=== PATIENT | female | born 1950 | race Caucasian/White ===

== ENCOUNTER 2022-07-12 09:08 | Outpatient (CLI) | payer MEDICARE, OTHER, SELFPAY ==
[2022-07-12 19:59] LABS: Basophils Percent Auto 0.6 % (0.2-1.2); Eosinophils Absolute Auto 0.1 K/mm3 (0-0.3); Eosinophils Percent Auto 2.3 % (0-4.4); Hematocrit 37.6 % (37.0-47.0); Hemoglobin 12.4 g/dL (12.0-15.0); Immature Granulocyte Absolute 0.02 K/mm3 (0.00-0.031); Immature Granulocyte Percent A 0.3 % (0-0.5); Lymphocytes Absolute Auto 1.82 K/mm3 (0.9-3.2); Lymphocytes Percent Auto 29.4 % (18.3-44.2); Mean Corpuscular Hemoglobin 32.8 pg (26-34); Mean Corpuscular Volume 99.5 fl (80-100); Mean Platelet Volume 11.6 fl (7.4-10.4); Monocytes Absolute Auto 0.6 K/mm3 (0.1-0.6); Monocytes Percent Auto 9.2 % (2.6-8.5); Neutrophils Absolute Auto 3.6 K/mm3 (1.3-6.7); Neutrophils Percent Auto 58.2 % (45.5-73.1); Platelet Count Result 194 k/mm3 (150-375); Red Blood Count 3.78 M/mm3 (4.2-5.4); Red Cell Distribution Width 12.1 % (11.5-14.5); White Blood Count 6.2 K/mm3 (4.5-10.0)
[2022-07-12 20:23] LABS: Alanine Aminotransferase 29 U/L (6-35); Albumin Level 4.8 g/dL (3.5-5.1); Alkaline Phosphatase 60 U/L (38-126); Anion Gap 11 mmol/L (8-16); Aspartate Amino Transferase 61 U/L (14-36); Bilirubin,Total 0.5 mg/dL (0.2-1.3); Blood Urea Nitrogen 31 mg/dL (7-17); Carbon Dioxide 27 mmol/L (22-30); Chloride 101 mmol/L (98-107); Cholesterol 142 mg/dL (0-200); Estimated Glomerular Filt Rate 44; Glucose 105 mg/dL (65-110); HDL Direct 51 mg/dL; Potassium 4.4 mmol/L (3.4-5.0); Sodium 139 mmol/L (137-145); Triglycerides 166 mg/dL (<150)
[2022-07-12 20:34] LABS: LDL Cholesterol Direct 58 mg/dL
[2022-07-12 20:42] LABS: Hemoglobin A1C 5.8 % (<5.7)
[2022-07-12 20:48] LABS: Vitamin D 25 Hydroxy 54.9 ng/mL
[2022-07-12 21:02] LABS: Thyroid Stimulating Hormone Reflex 0.068 uIU/mL (0.465-4.68)
[2022-07-12 23:23] LABS: Free T4 Free Thyroxine Reflex 1.14 ng/dL (0.78-2.19)
[2022-07-13 00:02] LABS: Total Triiodothyronine (T3) 1.04 NG/ML (0.97-1.69)
== END 2022-07-12 09:09 | disposition home or self-care (01) ==
LOC: ANHGOSHLAB 09:13
PROVIDERS: PCP Family Medicine; Visit Provider Family Medicine
DX: R73.9 Hyperglycemia, unspecified (principal); E55.9 Vitamin D deficiency, unspecified; E53.8 Deficiency of other specified B group vitamins; E78.5 Hyperlipidemia, unspecified; E03.9 Hypothyroidism, unspecified; I12.9 Hypertensive chronic kidney disease with stage 1 through stage 4 chronic kidney disease, or unspecified chronic kidney disease; N18.31 Chronic kidney disease, stage 3a
CPT/HCPCS: 36415; 80053; 80061; 82306; 82607; 83036; 84439; 84443; 84480; 85025

== ENCOUNTER 2022-08-17 07:07 | Outpatient (CLI) | payer MEDICARE, OTHER, SELFPAY ==
[2022-08-17 08:09] LABS: Alanine Aminotransferase 27 U/L (6-35); Albumin Level 4.6 g/dL (3.5-5.1); Alkaline Phosphatase 58 U/L (38-126); Anion Gap 14 mmol/L (8-16); Aspartate Amino Transferase 30 U/L (14-36); Bilirubin,Total 0.5 mg/dL (0.2-1.3); Blood Urea Nitrogen 24 mg/dL (7-17); Calcium 9.9 mg/dL (8.4-10.2); Carbon Dioxide 25 mmol/L (22-30); Chloride 102 mmol/L (98-107); Estimated Glomerular Filt Rate 49; Glucose 110 mg/dL (65-110); Sodium 141 mmol/L (137-145)
[2022-08-17 08:51] LABS: Thyroid Stimulating Hormone Reflex 0.407 uIU/mL (0.465-4.68)
[2022-08-17 13:50] LABS: Free T4 Free Thyroxine Reflex 0.94 ng/dL (0.78-2.19)
[2022-08-17 22:49] LABS: Total Triiodothyronine (T3) 1.12 NG/ML (0.97-1.69)
== END 2022-08-17 07:08 | disposition home or self-care (01) ==
LOC: ANHLAB 07:10
PROVIDERS: PCP Family Medicine; Visit Provider Family Medicine
DX: R74.01 Elevation of levels of liver transaminase levels (principal); E03.9 Hypothyroidism, unspecified
CPT/HCPCS: 36415; 80053; 84439; 84443; 84480

== ENCOUNTER 2023-01-17 09:45 | Outpatient (CLI) | payer MEDICARE, OTHER, SELFPAY ==
[2023-01-17 19:42] LABS: Hemoglobin A1C 5.8 % (<5.7)
[2023-01-17 20:04] LABS: Alanine Aminotransferase 25 U/L (6-35); Albumin Level 4.6 g/dL (3.5-5.1); Alkaline Phosphatase 60 U/L (38-126); Anion Gap 7 mmol/L (8-16); Aspartate Amino Transferase 31 U/L (14-36); Bilirubin,Total 0.6 mg/dL (0.2-1.3); Blood Urea Nitrogen 26 mg/dL (7-17); Calcium 9.9 mg/dL (8.4-10.2); Carbon Dioxide 32 mmol/L (22-30); Chloride 101 mmol/L (98-107); Estimated Glomerular Filt Rate 54; Glucose 101 mg/dL (65-110); Sodium 140 mmol/L (137-145)
[2023-01-17 20:29] LABS: Thyroid Stimulating Hormone Reflex 0.589 uIU/mL (0.465-4.68)
== END 2023-01-17 09:46 | disposition home or self-care (01) ==
LOC: ANHGOSHLAB 09:46
PROVIDERS: PCP Family Medicine; Visit Provider Family Medicine
DX: R73.03 Prediabetes (principal); E03.9 Hypothyroidism, unspecified; I10 Essential (primary) hypertension
CPT/HCPCS: 36415; 80053; 83036; 84443

== ENCOUNTER 2023-08-02 09:27 | Outpatient (CLI) | payer MEDICARE, OTHER, SELFPAY ==
[2023-08-02 19:49] LABS: Alanine Aminotransferase 27 U/L (6-35); Albumin Level 4.7 g/dL (3.5-5.1); Alkaline Phosphatase 53 U/L (38-126); Anion Gap 8 mmol/L (8-16); Aspartate Amino Transferase 37 U/L (14-36); Bilirubin,Total 0.7 mg/dL (0.2-1.3); Blood Urea Nitrogen 25 mg/dL (7-17); Calcium 10.3 mg/dL (8.4-10.2); Carbon Dioxide 30 mmol/L (22-30); Chloride 102 mmol/L (98-107); Cholesterol 172 mg/dL (0-200); Estimated Glomerular Filt Rate 54; Glucose 100 mg/dL (65-110); HDL Direct 54 mg/dL; Potassium 3.9 mmol/L (3.4-5.0); Sodium 140 mmol/L (137-145); Triglycerides 177 mg/dL (<150)
[2023-08-02 20:00] LABS: LDL Cholesterol Direct 81 mg/dL
[2023-08-02 20:13] LABS: Basophils Percent Auto 0.6 % (0.2-1.2); Eosinophils Absolute Auto 0.2 K/mm3 (0-0.3); Eosinophils Percent Auto 3.4 % (0-4.4); Hematocrit 39.5 % (37.0-47.0); Immature Granulocyte Absolute 0.02 K/mm3 (0.00-0.031); Immature Granulocyte Percent A 0.3 % (0-0.5); Lymphocytes Absolute Auto 1.82 K/mm3 (0.9-3.2); Lymphocytes Percent Auto 27.2 % (18.3-44.2); Mean Corpuscular HGB Conc 32.9 g/dl (32-36); Mean Corpuscular Hemoglobin 32.9 pg (26-34); Mean Platelet Volume 11.8 fl (7.4-10.4); Monocytes Absolute Auto 0.7 K/mm3 (0.1-0.6); Neutrophils Absolute Auto 3.9 K/mm3 (1.3-6.7); Neutrophils Percent Auto 58.5 % (45.5-73.1); Platelet Count Result 214 k/mm3 (150-375); Red Blood Count 3.95 M/mm3 (4.2-5.4); Red Cell Distribution Width 12.3 % (11.5-14.5); White Blood Count 6.7 K/mm3 (4.5-10.0)
[2023-08-02 20:17] LABS: Vitamin D 25 Hydroxy 49.7 ng/mL
[2023-08-02 20:33] LABS: Thyroid Stimulating Hormone Reflex 0.595 uIU/mL (0.465-4.68)
[2023-08-02 22:06] LABS: Hemoglobin A1C 5.7 % (<5.7)
== END 2023-08-02 09:28 | disposition home or self-care (01) ==
LOC: ANHGOSHLAB 09:29
PROVIDERS: PCP Family Medicine; Visit Provider Family Medicine
DX: E78.5 Hyperlipidemia, unspecified (principal); E03.9 Hypothyroidism, unspecified; N18.31 Chronic kidney disease, stage 3a; R73.03 Prediabetes; I10 Essential (primary) hypertension; E55.9 Vitamin D deficiency, unspecified; E53.8 Deficiency of other specified B group vitamins
CPT/HCPCS: 36415; 80053; 80061; 82306; 82607; 83036; 84443; 85025

== ENCOUNTER 2024-01-31 10:08 | Outpatient (CLI) | payer MEDICARE, OTHER, SELFPAY ==
[2024-01-31 12:32] LABS: Alanine Aminotransferase 24 U/L (6-35); Albumin Level 4.8 g/dL (3.5-5.1); Alkaline Phosphatase 65 U/L (38-126); Anion Gap 8 mmol/L (4-12); Aspartate Amino Transferase 47 U/L (14-36); Bilirubin,Total 0.7 mg/dL (0.2-1.3); Blood Urea Nitrogen 29 mg/dL (7-17); Calcium 10.6 mg/dL (8.4-10.2); Carbon Dioxide 29 mmol/L (22-30); Chloride 104 mmol/L (98-107); Estimated Glomerular Filt Rate 54; Glucose 116 mg/dL (65-110); Potassium 4.5 mmol/L (3.4-5.0); Sodium 141 mmol/L (137-145)
[2024-01-31 14:00] LABS: Thyroid Stimulating Hormone Reflex 0.773 uIU/mL (0.465-4.68)
[2024-01-31 22:46] LABS: Hemoglobin A1C 5.8 % (<5.7)
== END 2024-01-31 10:09 | disposition home or self-care (01) ==
PROVIDERS: PCP Family Medicine; Visit Provider Family Medicine
DX: R73.03 Prediabetes (principal); E03.9 Hypothyroidism, unspecified; I12.9 Hypertensive chronic kidney disease with stage 1 through stage 4 chronic kidney disease, or unspecified chronic kidney disease; N18.30 Chronic kidney disease, stage 3 unspecified
CPT/HCPCS: 36415; 80053; 83036; 84443

== ENCOUNTER 2024-04-01 02:43 | Day surgery (SDC) | payer MEDICARE, OTHER, SELFPAY ==
[2024-04-01 08:29] VITALS: BP 150/97; PULSE 74; RESP 20; TEMP 36.1; O2SAT 99
[2024-04-01] MEDS: LACTATED RINGERS 1,000 ML 150 ML IV CONT (08:39)
--- NOTE | 2024-04-01 09:09 | WPDANESEPPF ---
Anes - Initial Pre Proc Eval Procedure: Operation Date: 04/01/24 09:30 Proposed Procedures p Screening Colonoscopy - Josué Bear DO Date/Time: 04/01/24 09:09 Surgeon: Josué Bear DO Pre Op Diagnosis: Screening for malignant neoplasm of colon Patient Data Age: 74 Gender: F Height: Weight: 101.3 kg Last Vital Signs Temp 97 F L 04/01/24 08:29 Pulse 74 04/01/24 08:29 Resp 20 04/01/24 08:29 BP 150/97 H 04/01/24 08:29 Pulse Ox 99 04/01/24 08:29 O2 Del Method Room Air 04/01/24 08:29 Allergies Allergy/AdvReac Type Severity Reaction Status Date / Time cefazolin Allergy Unknown Unknown Verified 04/01/24 08:27 Cephalosporins AdvReac Mild VAGINAL Verified 04/01/24 08:27 ITCHING atorvastatin AdvReac Unknown Joint Pain Verified 04/01/24 08:27 cats Allergy Unknown ITCHY Uncoded 04/01/24 08:27 EYES, BUT PATIENT HAS A CAT Home Medications Medication Instructions Recorded Confirmed Type ascorbate calcium (vitamin C) 500 500 mg PO DAILY 12/09/19 03/14/24 History mg tablet biotin 5 mg capsule 5 mg PO DAILY 12/09/19 03/14/24 History calcium citrate 500 mg-vit D3 12.5 5 gm PO DAILY 12/09/19 03/14/24 History mcg (500 unit)/5 gram oral powder echinacea 380 mg capsule 760 mg PO DAILY 12/09/19 03/14/24 History hctaougz-jsx-xirbt acid 0.4 1 tablet PO DAILY 12/09/19 03/14/24 History mg-lycopene 300 mcg-lutein 250 mcg tablet (Centrum Silver) cholecalciferol (vitamin D3) 25 25 mcg PO DAILY 07/12/22 03/14/24 History mcg (1,000 unit) tablet levothyroxine 75 mcg tablet 75 mcg PO DAILY #90 tabs 01/31/24 04/01/24 Rx lisinopril 20 1 tablet PO DAILY #90 tabs 01/31/24 03/14/24 Rx mg-hydrochlorothiazide 25 mg tablet rosuvastatin 20 mg tablet 20 mg PO QHS #90 tabs 01/31/24 03/14/24 Rx Patient hx anesthesia problems: none Family hx anesthesia problems: none Results Review: All pre-operative results and documents have been reviewed as part of the pre-operative evaluation. 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 Dyslipidemia Essential (primary) hypertension Hypothyroidism (acquired) Prediabetes Unspecified osteoarthritis, unspecified site Surgical History Surgical History History of appendectomy 02/1968 History of cholecystectomy 08/27/1997 History of total hysterectomy 09/1979 Hx of total knee arthroplasty right - 09/21/2016, left - 03/2018 Family History Family History Sibling Seizure Other Diabetes mellitus Family history of coronary artery disease Hypertension Social History Social History Smoking status: Never smoker Second hand tobacco smoke exposure: No Alcohol intake: current Alcohol use details: consumes 2 beers a year Substance use: never Substance use type: does not use Lack of Transportation: No Lack of Food: Never True Current Housing: I Have Housing Concerned About Future Housing: No Difficulty Paying Gas/Electric Bills: No Difficulty Paying for Meds: No Currently Unemployed: No Education: High School Diploma/GED Difficulty w/ Childcare or Family Care: No Living arrangements: with family Additional living arrangements comments: Grandson Occupation/Education: retired Gender identity (if verbalized by the patient): Female Spiritual care concerns: No Agree to blood products: Yes Anes - Eval Final PreProcedure Day of Procedure 04/01/24 09:09 Patient weight: obese Heart: regular rate and rhythm Lungs: clear to auscultation Airway: Mallampati scale class II Neurological: alert and oriented Last oral
--- NOTE | 2024-04-01 09:31 | PM.IMHP ---
H&P: HPI History of Present Illness Date/Time: 04/01/24 09:31 Chief Complaint: screening for colorectal cancer Narrative: this is a 74-year-old woman who presents for colonoscopy. Her last colonoscopy was 5 years ago and a couple small polyps were removed. She denies any hematochezia or melena. She denies any family history colon cancer. Review of Systems Review of Systems: All systems reviewed & are unremarkable except as noted in HPI and below Constitutional: Constitutional: Denies chills, Denies fever(s), Denies headache(s) and Denies weight loss Eyes: Eyes: Denies change in vision ENT: Denies dizziness, Denies headache(s), Denies neck mass and Denies throat swelling Cardiovascular: Cardiovascular: Denies chest pain, Denies lightheadedness and Denies dyspnea Respiratory: Respiratory: Denies cough, Denies dyspnea and Denies wheezing Gastrointestinal: Gastrointestinal: Denies abdominal pain, Denies change in bowel habits, Denies nausea and Denies vomiting Genitourinary: Genitourinary: Denies hematuria and Denies dysuria Musculoskeletal: Musculoskeletal: Reports as per HPI Integumentary/Breasts: Skin/Breast: Reports as per HPI Neurologic: Denies dizziness and Denies headache(s) Allergic/Immunologic: Allergic/Immunologic: Denies throat swelling and Denies wheezing PMF Past Medical History Medical History Chronic low back pain without sciatica CKD (chronic kidney disease) stage 3, GFR 30-59 ml/min 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 Dyslipidemia Essential (primary) hypertension Hypothyroidism (acquired) Prediabetes Unspecified osteoarthritis, unspecified site Surgical History Surgical History History of appendectomy 02/1968 History of cholecystectomy 08/27/1997 History of total hysterectomy 09/1979 Hx of total knee arthroplasty right - 09/21/2016, left - 03/2018 Family History Family History Sibling Seizure Other Diabetes mellitus Family history of coronary artery disease Hypertension Social History Social History Smoking status: Never smoker Second hand tobacco smoke exposure: No Alcohol intake: current Alcohol use details: consumes 2 beers a year Substance use: never Substance use type: does not use Lack of Transportation: No Lack of Food: Never True Current Housing: I Have Housing Concerned About Future Housing: No Difficulty Paying Gas/Electric Bills: No Difficulty Paying for Meds: No Currently Unemployed: No Education: High School Diploma/GED Difficulty w/ Childcare or Family Care: No Living arrangements: with family Additional living arrangements comments: Grandson Occupation/Education: retired Gender identity (if verbalized by the patient): Female Spiritual care concerns: No Agree to blood products: Yes Meds Home Medications and Allergies Home Medications Medication Instructions Recorded Confirmed Type ascorbate calcium (vitamin C) 500 500 mg PO DAILY 12/09/19 03/14/24 History mg tablet biotin 5 mg capsule 5 mg PO DAILY 12/09/19 03/14/24 History calcium citrate 500 mg-vit D3 12.5 5 gm PO DAILY 12/09/19 03/14/24 History mcg (500 unit)/5 gram oral powder echinacea 380 mg capsule 760 mg PO DAILY 12/09/19 03/14/24 History ioxvjnet-kro-fvrwu acid 0.4 1 tablet PO DAILY 12/09/19 03/14/24 History mg-lycopene 300 mcg-lutein 250 mcg tablet (Centrum Silver) cholecalciferol (vitamin D3) 25 25 mcg PO DAILY 07/12/22 03/14/24 History mcg (1,000 unit) tablet levothyroxine 75 mcg tablet 75 mcg PO DAILY #90 tabs 01/31/24 04/01/24 Rx lisinopril 20 1 tablet PO DAILY #90 tabs 01/31/24 03/14/24 Rx mg-hydrochlorothiazide 25 mg tablet rosuvastatin 20 mg tablet 20 mg PO QHS #90 tabs
[2024-04-01 10:04] VITALS: BP 111/62; PULSE 77; RESP 12; O2SAT 97
[2024-04-01 10:14] VITALS: BP 117/74; PULSE 67; RESP 12; O2SAT 98
[2024-04-01 10:20] VITALS: BP 127/76; RESP 12; O2SAT 99
== END 2024-04-01 10:35 | disposition home or self-care (01) ==
PROVIDERS: PCP Family Medicine; Visit Provider Surgery
PROC: 0DJD8ZZ Inspection of Lower Intestinal Tract, Via Natural or Artificial Opening Endoscopic (ICD-10-PCS; CPT 45378; principal; 2024-04-01 09:30)
DX: Z12.11 Encounter for screening for malignant neoplasm of colon (principal); D12.2 Benign neoplasm of ascending colon; K62.1 Rectal polyp; K57.30 Diverticulosis of large intestine without perforation or abscess without bleeding; I12.9 Hypertensive chronic kidney disease with stage 1 through stage 4 chronic kidney disease, or unspecified chronic kidney disease; N18.30 Chronic kidney disease, stage 3 unspecified; E78.5 Hyperlipidemia, unspecified; E03.9 Hypothyroidism, unspecified; E66.9 Obesity, unspecified
CPT/HCPCS: 45380; 88305; J2704; J7120

== ENCOUNTER 2024-08-07 10:19 | Outpatient (CLI) | payer MEDICARE, OTHER, SELFPAY ==
[2024-08-07 18:52] LABS: Basophils Percent Auto 0.7 % (0.2-1.2); Eosinophils Absolute Auto 0.2 K/mm3 (0-0.3); Eosinophils Percent Auto 3.4 % (0-4.4); Hematocrit 40.1 % (37.0-47.0); Hemoglobin 13.5 g/dL (12.0-15.0); Immature Granulocyte Absolute 0.01 K/mm3 (0.00-0.031); Immature Granulocyte Percent A 0.2 % (0-0.5); Lymphocytes Absolute Auto 1.54 K/mm3 (0.9-3.2); Lymphocytes Percent Auto 26.6 % (18.3-44.2); Mean Corpuscular HGB Conc 33.7 g/dl (32-36); Mean Corpuscular Hemoglobin 33.3 pg (26-34); Mean Corpuscular Volume 98.8 fl (80-100); Mean Platelet Volume 11.7 fl (7.4-10.4); Monocytes Absolute Auto 0.5 K/mm3 (0.1-0.6); Monocytes Percent Auto 8.3 % (2.6-8.5); Neutrophils Absolute Auto 3.5 K/mm3 (1.3-6.7); Neutrophils Percent Auto 60.8 % (45.5-73.1); Platelet Count Result 216 k/mm3 (150-375); Red Blood Count 4.06 M/mm3 (4.2-5.4); Red Cell Distribution Width 12.1 % (11.5-14.5); White Blood Count 5.8 K/mm3 (4.5-10.0)
[2024-08-07 18:59] LABS: Add Urine Microscopic? NO; Appearance Urine Clear (Clear); Bilirubin Urine Negative (Negative); Blood Urine Negative (Negative); Color Urine Yellow (Yellow); Glucose Urine UA Negative (Negative); Ketones Urine Negative (Negative); Leukocyte Esterase Ur Negative LEU/UL (Negative); Nitrate Urine Negative (Negative); Protein Urine Negative (Negative); pH Urine 6.5 (5.0-9.0)
[2024-08-07 19:31] LABS: Alanine Aminotransferase 24 U/L (6-35); Albumin Level 4.7 g/dL (3.5-5.1); Alkaline Phosphatase 60 U/L (38-126); Anion Gap 9 mmol/L (4-12); Aspartate Amino Transferase 31 U/L (14-36); Bilirubin,Total 0.7 mg/dL (0.2-1.3); Blood Urea Nitrogen 23 mg/dL (7-17); Calcium 10.2 mg/dL (8.4-10.2); Carbon Dioxide 30 mmol/L (22-30); Chloride 99 mmol/L (98-107); Cholesterol 169 mg/dL (0-200); Estimated Glomerular Filt Rate 48; Glucose 104 mg/dL (65-110); HDL Direct 59 mg/dL; Potassium 4.3 mmol/L (3.4-5.0); Sodium 138 mmol/L (137-145); Triglycerides 196 mg/dL (<150)
[2024-08-07 19:39] LABS: Hemoglobin A1C 6.2 % (<5.7)
[2024-08-07 20:01] LABS: LDL Cholesterol Direct 64 mg/dL
[2024-08-07 22:29] LABS: Vitamin D 25 Hydroxy 46.3 ng/mL
== END 2024-08-07 10:20 | disposition home or self-care (01) ==
LOC: ANHGOSHLAB 10:20
PROVIDERS: PCP Family Medicine; Visit Provider Family Medicine
DX: Z00.00 Encounter for general adult medical examination without abnormal findings (principal); E78.5 Hyperlipidemia, unspecified; E03.9 Hypothyroidism, unspecified; R73.03 Prediabetes; E55.9 Vitamin D deficiency, unspecified; R30.0 Dysuria; E53.8 Deficiency of other specified B group vitamins; I12.9 Hypertensive chronic kidney disease with stage 1 through stage 4 chronic kidney disease, or unspecified chronic kidney disease; N18.31 Chronic kidney disease, stage 3a
CPT/HCPCS: 36415; 80053; 80061; 81003; 82306; 82607; 83036; 84443; 85025

== ENCOUNTER 2025-02-12 11:39 | Outpatient (CLI) | payer MEDICARE, OTHER, SELFPAY ==
--- OUTSIDE RECORDS SUMMARY | 2025-02-12 13:09 | XMS_ITS | Encounter Summary ---
Author Organization [facility] Facility Care Team Providers Care Straightening Press Operator Helper Name Role Phone Cristobal Dotson Primary Care Provider [phone] Encounter Details Date Type Department Care Team (Latest Contact Info) Description 09/20/2016 Orders Only [facility] CLINCONV Provider, MD Yenny [address] [place] [address] Social History Tobacco Use Types Packs/Day Years Used Date Smoking Tobacco: Never Assessed Comments Unknown Sex and Gender Information Value Date Recorded Sex Assigned at Not on file Legal Sex Female 11:59 PM HOME CARE COMPANION Gender Identity Not on file Sexual Orientation Not on file documented as of this encounter Plan of Treatment Not on file documented as of this encounter Procedures Procedure Name Priority Date/Time Associated Diagnosis Comments PROCEDURE - RESULT 09/20/2016 12 :00 AM HOME CARE COMPANION documented in this encounter Results * PROCEDURE - RESULT (09/20/2016 12:00 AM HOME CARE COMPANION) Narrative 09/20/2016 12:00 AM HOME CARE COMPANION Ordered by an unspecified provider. us Historical Provider Final Res ult documented in this encounter Visit Diagnoses Not on filedocumented in this encounter Care Teams Straightening Press Operator Helper Relationship Specialty Start Date End Date Cristobal Dotson [address] [place] [address] PCP - General Emergency Medicine 01/23/19 documented as of this encounter
--- OUTSIDE RECORDS SUMMARY | 2025-02-12 13:09 | XMS_ITS | Referral Summary ---
Author Organization [facility] Address [facility] [place] [address] Care Team Providers Care Pattern Vault Clerk Name Role Phone Cristobal Dotson Primary Care Provider [phone] Allergies Active Allergy Reactions Criticality Noted Date Comments Atorvastatin Cough Low 01/23/2019 Cefazolin Rash Medium 01/23/2019 Medications aspirin 81 mg enteric coated tablet Rx: ASA , TAKE: 1 tab Active levothyroxine (SYNTHROID, LEVOTHROID) 75 mcg tablet Take 75 mcg by mouth every morning 1 11/29/2018 Active lisinopril-hydr oCHLOROthiazide (PRINZIDE,ZESTO RETIC) 20-25 mg per tablet Take 1 tablet by mouth daily 1 01/11/2019 Active pravastatin (PRAVACHOL) 80 mg tablet Take 80 mg by mouth nightly 2 01/11/2019 Active amoxicillin (AMOXIL) 500 mg tablet/capsuleI ndications:Prop hylaxis, Medical 500mg capsules to take 4 capsules by mouth one hour before dental visit 4 tablet/capsul e 1 01/23/2019 Active Active Problems Problem Noted Date Diagnosed Date History of left knee replacement 02/12/2019 Social History Tobacco Use Types Packs/Day Years Used Date Smoking Tobacco: Never Smokeless Tobacco: Never Alcohol Use Standard Drinks/Week Comments Yes 0 (1 standard drink = 0.6 oz pur e alcohol) Personal Safety Answer Date Recorded Getting School Help Needed Not on file 01/04 Comments Unknown Sex and Gender Information Value Date Recorded Sex Assigned at Not on file Legal Sex Female 11:59 PM LIGHTHOUSE KEEPER Gender Identity Not on file Sexual Orientation Not on file Occupation Industry Job Start Date Job End Date retired Not on file Not on file Not on file Last Filed Vital Signs Vital Sign Reading Time Taken Comments Blood Pressure 134/82 04/01/2018 1:24 PM CDT Pulse 109 04/01/2018 1:24 PM CDT Temperature 37.1 C (98.8 F) 04/01/2018 1:24 PM CDT Respiratory Rate - - Oxygen Saturation 99% 04/01/2018 1:24 PM CDT Inhaled Oxygen Concentration - - Weight 101.6 kg (224 lb) 02/12/2019 9:21 AM CDT Height 160 cm (5' 3 ) 02/12/2019 9:21 AM CDT Body Mass Index 39.68 02/12/2019 9:21 AM CDT Plan of Treatment Not on file Insurance MEDICARE [facility] Care Teams Pattern Vault Clerk Relationship Specialty Start Date End Date Cristobal Dotson [address] [place] [address] PCP - General Emergency Medicine 01/23/19
--- OUTSIDE RECORDS SUMMARY | 2025-02-12 13:09 | XMS_ITS | Clinical Summary ---
Author Organization [facility] Address [facility] [place] [address] Care Team Providers Care Car Rental Service Attendant Name Role Phone Cristobal Dotson Primary Care Provider [phone] Allergies Active Allergy Reactions Criticality Noted Date [...] Date History of left knee replacement 02/12/2019 Surgical History Surgery Date Site/Laterality Comments APPENDECTOMY HYSTERECTOMY CHOLECYSTECTOMY FISTULA REPAIR 09/01/2004 colocesical JOINT REPLACEMENT KNEE SURGERY 09/21/2016 Right KNEE SURGERY 03/22/2018 - 04/20/2018 Left Medical History Medical History Date Comments Thyroid disease Hypercholesteremia Family History Medical History Relation Name Comments Cancer Other Diabetes Other Heart disease Other Hypertension Other Lung disease Other Relation Name Status Comments Other Social History Tobacco Use Types Packs/Day Years [...] on file Legal Sex Female 11:59 PM BRANCH OPERATIONS MANAGER Gender Identity Not on file Sexual Orientation Not on file Occupation Industry Job Start Date Job End Date retired Not on file Not on file Not on file Obstetrics History Last Filed Vital Signs Vital Sign Reading [...] of Treatment Not on file Insurance MEDICARE [facility] Care Teams Car Rental Service Attendant Relationship Specialty Start Date End Date Cristobal Dotson [address] [place] [address] PCP - General Emergency Medicine 01/23/19
--- OUTSIDE RECORDS SUMMARY | 2025-02-12 13:09 | XMS_ITS | Encounter Summary ---
Author Organization [facility] Facility Care Team Providers Care Braided Band Assembler Name Role Phone Cristobal Dotson Primary Care Provider [phone] Encounter Details Date Type Department Care Team (Latest Contact Info) Description 04/01/2018 Orders Only [facility] CLINCONV Provider, MD Yenny [address] [place] [address] Social History Tobacco Use Types Packs/Day Years Used Date Smoking Tobacco: Never Assessed Comments Unknown Sex and Gender Information Value Date Recorded Sex Assigned at Not on file Legal Sex Female 11:59 PM REGIONAL OPERATIONS MANAGER Gender Identity Not on file Sexual Orientation Not on file documented as of this encounter Plan of Treatment Not on file documented as of this encounter Procedures Procedure Name Priority Date/Time Associated Diagnosis Comments PROCEDURE - RESULT 03/29/2018 12 :00 AM CDT documented in this encounter Results * PROCEDURE - RESULT (03/29/2018 12:00 AM CDT) Narrative 03/29/2018 12:00 AM CDT Ordered by an unspecified provider. Historical Provider Final Res ult documented in this encounter Visit Diagnoses Not on filedocumented in this encounter Care Teams Braided Band Assembler Relationship Specialty Start Date End Date Cristobal Dotson [address] [place] [address] PCP - General Emergency Medicine 01/23/19 documented as of this encounter
--- OUTSIDE RECORDS SUMMARY | 2025-02-12 13:09 | XMS_ITS | Encounter Summary ---
Author Organization [facility] Facility Care Team Providers Care Legal Billing Clerk Name Role Phone Cristobal Dotson Primary Care Provider [phone] Encounter Details Date Type Department Care Team (Latest Contact Info) Description 09/11/2016 Orders Only [facility] CLINCONV Provider, MD Yenny [address] [place] [address] Social History Tobacco Use Types Packs/Day Years Used Date Smoking Tobacco: Never Assessed Comments Unknown Sex and Gender Information Value Date Recorded Sex Assigned at Not on file Legal Sex Female 11:59 PM CLOTH BALER Gender Identity Not on file Sexual Orientation Not on file documented as of this encounter Plan of Treatment Not on file documented as of this encounter Procedures Procedure Name Priority Date/Time Associated Diagnosis Comments PROCEDURE - RESULT 09/19/2016 12 :00 AM CLOTH BALER documented in this encounter Results * PROCEDURE - RESULT (09/19/2016 12:00 AM CLOTH BALER) Narrative 09/19/2016 12:00 AM CLOTH BALER Ordered by an unspecified provider. us Historical Provider Final Res ult documented in this encounter Visit Diagnoses Not on filedocumented in this encounter Care Teams Legal Billing Clerk Relationship Specialty Start Date End Date Cristobal Dotson [address] [place] [address] PCP - General Emergency Medicine 01/23/19 documented as of this encounter
--- OUTSIDE RECORDS SUMMARY | 2025-02-12 13:09 | XMS_ITS | Encounter Summary ---
Author Organization [facility] Facility Care Team Providers Care Salesperson Furniture Name Role Phone Cristobal Dotson Primary Care Provider [phone] Encounter Details Date Type Department Care Team (Latest Contact Info) Description 03/28/2018 Orders Only [facility] CLINCONV Provider, MD Yenny [address] [place] [address] Social History Tobacco Use Types Packs/Day Years Used Date Smoking Tobacco: Never Assessed Comments Unknown Sex and Gender Information Value Date Recorded Sex Assigned at Not on file Legal Sex Female 11:59 PM DOOR TECHNICIAN Gender Identity Not on file Sexual Orientation [...] on filedocumented in this encounter Care Teams Salesperson Furniture Relationship Specialty Start Date End Date Cristobal Dotson [address] [place] [address] PCP - General Emergency Medicine 01/23/19 documented as of this encounter
--- OUTSIDE RECORDS SUMMARY | 2025-02-12 13:09 | XMS_ITS | Encounter Summary ---
Author Organization [facility] Facility Care Team Providers Care Hydro Technician Name Role Phone Cristobal Dotson Primary Care Provider [phone] Encounter Details Date Type Department Care Team (Latest Contact Info) Description 02/11/2018 Orders Only [facility] CLINCONV Provider, MD Yenny [address] [place] [address] Social History Tobacco Use Types Packs/Day Years Used Date Smoking Tobacco: Never Assessed Comments Unknown Sex and Gender Information Value Date Recorded Sex Assigned at Not on file Legal Sex Female 11:59 PM PRODUCT DEVELOPMENT DIRECTOR Gender Identity Not on file Sexual Orientation Not on file documented as of this encounter Plan of Treatment Not on file documented as of this encounter Procedures Procedure Name Priority Date/Time Associated Diagnosis Comments PROCEDURE - RESULT 02/11/2018 12 :00 AM CDT documented in this encounter Results * PROCEDURE - RESULT (02/11/2018 12:00 AM CDT) Narrative 02/11/2018 12:00 AM CDT Ordered by an unspecified provider. Historical Provider Final Res ult documented in this encounter Visit Diagnoses Not on filedocumented in this encounter Care Teams Hydro Technician Relationship Specialty Start Date End Date Cristobal Dotson [address] [place] [address] PCP - General Emergency Medicine 01/23/19 documented as of this encounter
--- OUTSIDE RECORDS SUMMARY | 2025-02-12 13:09 | XMS_ITS | Continuity of Care Document ---
Author Organization [facility] Address [address] [place] [address] [address] [facility] [address] [place] [address] Phone Care Team Providers Care V/Stol Landing Signal Officer Name Role Phone Castaneda OD, Elie Unavailable Unavailable Procedures Procedure Date Eye Exam & Treatment Refraction Advance Directives Directive Yes / No Effective Date File Name No Information Encounters Encounter Description Practice Location Reason(s) For Visit Diagnoses Date Provider Providers Copied on Encounter [facility], [address] [place] [address] [address], [place], [place], [id number], [place] tel:[phone] [facility] ([facility]) No Information Dec-0 6-200 7 Castaneda OD Elie. [address] , [address], [place], [address], [place]. tel:[phone] Family History Family Member Type Diagnosis Age At Onset No Information Payers Payer name Insurance type Covered republican ID Authoriza tibrittany(s) [facility] Commercial CI [id number] Social History Type Description Quantity Date Captured Comments Sex Female Smoking Status No Information Chief Complaint And Reason For Visit No Information Reason For Referral Reason For Referral No Information History Of Present Illness Encounter Date Complaint History Of Prese nt Illness No Information Functional Status Date Functional Assessmen t No Information Instructions Date Instruction Additional Infor mation No Information Assessments Type Assessment Date No Information Patient Care Teams Name Effective Dates (start - stop) Status Members No Information
[2025-02-12 19:52] LABS: Alanine Aminotransferase 27 U/L (6-35); Albumin Level 4.4 g/dL (3.5-5.1); Alkaline Phosphatase 62 U/L (38-126); Anion Gap 7 mmol/L (4-12); Aspartate Amino Transferase 41 U/L (14-36); Bilirubin,Total 0.7 mg/dL (0.2-1.3); Blood Urea Nitrogen 18 mg/dL (7-17); Calcium 9.7 mg/dL (8.4-10.2); Carbon Dioxide 30 mmol/L (22-30); Chloride 102 mmol/L (98-107); Estimated Glomerular Filt Rate 56; Glucose 97 mg/dL (65-110); Potassium 4.5 mmol/L (3.4-5.0); Sodium 139 mmol/L (137-145)
[2025-02-12 21:04] LABS: Hemoglobin A1C 6.1 % (<5.7)
== END 2025-02-12 11:40 | disposition home or self-care (01) ==
LOC: ANHGOSHLAB 11:41
PROVIDERS: PCP Family Medicine; Visit Provider Family Medicine
DX: R73.03 Prediabetes (principal); I10 Essential (primary) hypertension
CPT/HCPCS: 36415; 80053; 83036

== ENCOUNTER 2025-04-15 13:32 | Outpatient (CLI) | payer MEDICARE, OTHER, SELFPAY ==
--- NOTE | 2025-04-15 13:00 | NEURO_ITS ---
Impression: # Complains of increasing numbness of both hands ? # Severe bilateral Carpal Tunnel Syndrome; right more than left ? # No ulnar neuropathy? # Abnormal Needle/EMG exam Nerve Conduction Studies Anti Sensory Summary Table ?Stim Site NR Peak (ms) P-T Amp (?V) Site1 Site2 Delta-P (ms) Dist (cm) Pratik (m/s) Left Median Anti Sensory (2-3nd Digit) Wrist ? 7.7 19.2 Wrist 2-3nd Digit 7.7 14.0 18 Wrist ? 7.8 19.1 Wrist 2-3nd Digit 7.7 14.0 18 Right Median Anti Sensory (2-3nd Digit) Wrist ? 6.8 7.7 Wrist 2-3nd Digit 6.8 14.0 21 Wrist ? 6.5 6.7 Wrist 2-3nd Digit 6.8 14.0 21 Left Radial Anti Sensory (Base 1st Digit) Wrist ? 1.7 30.0 Wrist Base 1st Digit 1.7 0.0 Right Radial Anti Sensory (Base 1st Digit) Wrist ? 1.8 20.2 Wrist Base 1st Digit 1.8 0.0 Left Ulnar Anti Sensory (5th Digit) Wrist ? 2.4 41.8 Wrist 5th Digit 2.4 14.0 58 Right Ulnar Anti Sensory (5th Digit) Wrist ? 2.3 22.9 Wrist 5th Digit 2.3 14.0 61 Motor Summary Table ?Stim Site NR Onset (ms) O-P Amp (mV) Site1 Site2 Delta-0 (ms) Dist (cm) Pratik (m/s) Left Median Motor (Abd Poll Brev) Wrist ? 8.0 7.3 Elbow Wrist 5.0 27.0 54 Elbow ? 13.0 6.4 Right Median Motor (Abd Poll Brev)??? NO RESPONSE Wrist NR Elbow Wrist 26.0 Elbow NR Left Ulnar Motor (Abd Dig Minimi) Wrist ? 2.8 6.1 A Elbow Wrist 4.8 29.0 60 A Elbow ? 7.6 3.7 B Elbow Wrist 3.5 21.0 60 B Elbow ? 6.3 2.3 Right Ulnar Motor (Abd Dig Minimi) Wrist ? 2.4 6.3 A Elbow Wrist 4.6 28.0 61 A Elbow ? 7.0 5.4 B Elbow Wrist 3.3 20.0 61 B Elbow ? 5.7 5.5 F Wave Studies ?NR F-Lat (ms) L-R F-Lat (ms) Left Median (Mrkrs) (Abd Poll Brev) ? 29.39 2.51 Right Median (Mrkrs) (Abd Poll Brev) ? 26.88 2.51 Left Ulnar (Mrkrs) (Abd Dig Min) ? 26.33 0.48 Right Ulnar (Mrkrs) (Abd Dig Min) ? 25.85 0.48 EMG ?Side Muscle Nerve Root Ins Act Fibs Amp Dur Recrt Comment Right 1stDorInt Ulnar C8-T1 Nml Nml Nml Nml Nml Right Ext Indicis Radial (Post Int) C7-8 Nml Nml Nml Nml Nml Right Ext Digitorum Radial (Post Int) C7-8 Nml Nml Nml Nml Nml Right BrachioRad Radial C5-6 Nml Nml Nml Nml Nml Right PronatorTeres Median C6-7 Nml Nml Nml Nml Nml Right Abd Poll Brev Median C8-T1 Nml Nml Nml >12ms +3 Right ABD Dig Min Ulnar C8-T1 Nml Nml Nml Nml Nml Right FlexPolLong Median (Ant Int) C7-8 Nml Nml Nml Nml Nml Right Abd Poll Long Radial (Post Int) C7-8 Nml Nml Nml Nml Nml Left 1stDorInt Ulnar C8-T1 Nml Nml Nml Nml Nml Left Ext Indicis Radial (Post Int) C7-8 Nml Nml Nml Nml Nml Left Ext Digitorum Radial (Post Int) C7-8 Nml Nml Nml Nml Nml Left BrachioRad Radial C5-6 Nml Nml Nml Nml Nml Left PronatorTeres Median C6-7 Nml Nml Nml Nml Nml Left Abd Poll Brev Median C8-T1 Nml Nml Nml >12ms +2 Left ABD Dig Min Ulnar C8-T1 Nml Nml Nml Nml Nml Left FlexPolLong Median (Ant Int) C7-8 Nml Nml Nml Nml Nml Left Abd Poll Long Radial (Post Int) C7-8 Nml Nml Nml Nml Nml
== END 2025-04-15 13:33 | disposition home or self-care (01) ==
PROVIDERS: PCP Family Medicine; Visit Provider Family Medicine
DX: R20.0 Anesthesia of skin (principal); R20.2 Paresthesia of skin; G56.03 Carpal tunnel syndrome, bilateral upper limbs
CPT/HCPCS: 95886; 95911

== ENCOUNTER 2025-05-20 06:58 | Outpatient (CLI) | payer MEDICARE, OTHER, SELFPAY ==
--- OUTSIDE RECORDS SUMMARY | 2025-05-20 07:02 | XMS_ITS | Encounter Summary ---
Author Organization [facility] Address [address] [facility] [place] [address] Care Team Providers Care Plate Glass Grinder Name Role Phone Unavailable Primary Care Provider Unavailabl e Encounter Details Date Type Department Care Team (Late st Contact Info) Description 11/13/[address] [facility] - DermPath Lab [address] [facility] ([place], [place]), [place] [address] Rocio Mishra DO [address] [facility] 3 [place] [address] Social History Tobacco Use Types Packs/Day Years Used Date Smoking Tobacco: Never Assessed Comments Unknown Sex and Gender Information Value Date Recorded Sex Assigned at Not on file Legal Sex Female 11:52 AM CDT Gender Identity Not on file Sexual Orientation Not on file documented as of this encounter Plan of Treatment Not on file documented as of this encounter Procedures Procedure Name Priority Date/Time Associated Diagnosis Comments DERMATOPATHOLOGY Routine 11/13/2024 11:0 0 AM ASSISTANT FLOOR COVERING PRINTER documented in this encounter Results * DERMATOPATHOLOGY (11/13/2024 11:00 AM ASSISTANT FLOOR COVERING PRINTER) Case Report Dermatopathology Report Case: [id number] Authorizing Provider: Rocio Mishra DO Collected: 11/13/2024 11:00 AM Ordering Location: [facility] - Received: 11/14/2024 06:51 AM DermPath Lab Pathologist: Nicol Tejeda MD Specimen: Skin, right paraspinal back 1:13 PM ASSISTANT FLOOR COVERING PRINTER DERMATOPATHOLOGY LABORATORY Final Diagnosis Specimen A. 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 The specimen consists of a shave biopsy measuring 17x8x1 mm. Jar 0. 1:13 PM [facility] DERMATOPATHOLOGY LABORATORY Microscopic Description Specimen A. SKIN, right paraspinal back: The epidermis shows parakeratosis, full thickness disorderly maturation of keratinocytes, mitoses at different levels, and dyskeratotic cells. 1:13 PM [facility] DERMATOPATHOLOGY LABORATORY Disclaimer An external and internal positive and negative controls are appropriate for the histochemical, immunohistochemical and immunofluorescence stain(s) in this case (if any), except where stated explicitly. The performance characteristics of the stain(s) cited in this report were developed and its performance characteristic determined by the Dermatopathology Laboratory at [facility], directed by Dr. Lakisha Hennessy. These tests need not be, and therefore are not, approved by the [place] Food and Drug Administration. The tests are used for clinical purposes. Billing Codes Specimen Charges Stain Charges 18934 1 1:13 PM [facility] DERMATOPATHOLOGY LABORATORY Embedded Images 1:13 PM [facility] DERMATOPATHOLOGY LABORATORY Pathology/Cytolo gy TISSUE SPECIMEN FROM SKIN / Unknown 11/13/2024 11:00 AM ASSISTANT FLOOR COVERING PRINTER 11/14/2024 6:51 AM ASSISTANT FLOOR COVERING PRINTER Rocio Mishra DO LAB - PATHOLOGY/CYTOLOGY ORDERABLES Final Result DERMATOPATHOLOGY LABORATORY [facility] - Department of Dermatology [address], [address]rd Floor [address] [phone] documented in this encounter Visit Diagnoses Not on filedocumented in this encounter
--- OUTSIDE RECORDS SUMMARY | 2025-05-20 07:02 | XMS_ITS | Encounter Summary ---
Author Organization [facility] Facility Care Team Providers Care Blind Stitch Machine Operator Name Role Phone Cristobal Dotson Primary Care Provider [phone] Encounter Details Date Type Department Care Team (Latest Contact Info) Description 02/11/2018 Orders Only [facility] CLINCONV Provider, MD Yenny [address] [place] [address] Social History Tobacco Use Types Packs/Day Years Used Date Smoking Tobacco: Never Assessed Comments Unknown Sex and Gender Information Value Date Recorded Sex Assigned at Not on file Legal Sex Female 11:59 PM FACILITY SERVICE ASSOCIATE Gender Identity Not on file Sexual Orientation [...] on filedocumented in this encounter Care Teams Blind Stitch Machine Operator Relationship Specialty Start Date End Date Cristobal Dotson [address] [place] [address] PCP - General Emergency Medicine 01/23/19 documented as of this encounter
--- OUTSIDE RECORDS SUMMARY | 2025-05-20 07:02 | XMS_ITS | Encounter Summary ---
Author Organization [facility] Facility Care Team Providers Care Retail Planner Name Role Phone Cristobal Dotson Primary Care Provider [phone] Encounter Details Date Type Department Care Team (Latest Contact Info) Description 03/28/2018 Orders Only MMG CLINCONV Provider, MD Yenny [address] [place] [address] Social History Tobacco Use Types Packs/Day Years Used Date Smoking Tobacco: Never Assessed Comments Unknown Sex and Gender Information Value Date Recorded Sex Assigned at Not on file Legal Sex Female 11:59 PM CROP AND SOIL TECHNICIAN Gender Identity Not on file Sexual [...] on filedocumented in this encounter Care Teams Retail Planner Relationship Specialty Start Date End Date Cristobal Dotson [address] [place] [address] PCP - General Emergency Medicine 01/23/19 documented as of this encounter
--- OUTSIDE RECORDS SUMMARY | 2025-05-20 07:02 | XMS_ITS | Encounter Summary ---
Author Organization [facility] Address [address] [facility] [place] [address] Care Team Providers Care Construction Estimator Name Role Phone Unavailable Primary Care Provider Unavailabl e Encounter Details Date Type Department Care Team (Late st Contact Info) Description 05/01/2024 Lab Requisition [facility] - DermPath Lab [address] [facility] [place] [address] Rocio Mishra DO [address] [facility] 3 [place] [address] Social History Tobacco Use Types Packs/Day Years [...] Priority Date/Time Associated Diagnosis Comments DERMATOPATHOLOGY Routine 05/01/2024 9:52 AM CDT documented in this encounter Results * DERMATOPATHOLOGY (05/01/2024 9:52 AM CDT) Case Report Dermatopathology Report Case: [id number] Authorizing Provider: Rocio Mishra DO Collected: 05/01/2024 09:52 AM Ordering Location: [facility] - Received: 05/02/2024 04:31 PM DermPath Lab Pathologist: Maria Del Carmen Hennessy MD Specimens: A) - Skin, left crown B) - Skin, left eyebrow 4:48 PM CDT DERMATOPATHOLOGY LABORATORY Final Diagnosis Specimen A. SKIN, left crown: BASAL CELL CARCINOMA, NODULAR TYPE (C44.41) Specimen B. 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 The specimen consists of a shave biopsy measuring 8x8x1 mm. Jar 0. Specimen B: Received is one formalin filled container labeled with the patient's name and designated left eyebrow. The specimen consists of a shave biopsy measuring 8x7x2 mm. Jar 0. 4:48 PM CDT DERMATOPATHOLOGY LABORATORY Microscopic Description Specimen A. SKIN, left crown: Within the dermis there are aggregates of basaloid cells with a high nuclear to cytoplasmic ratio and peripheral palisading. Specimen B. SKIN, left eyebrow: The epidermis shows parakeratosis, full thickness disorderly maturation of keratinocytes, mitoses at different levels, and dyskeratotic cells. There is hyperkeratosis alternating with parakeratosis. There is epidermal hyperplasia with disorderly maturation of keratinocytes with nuclear pleomorphism confined to the lower half of the epidermis. 4:48 PM CDT DERMATOPATHOLOGY LABORATORY Disclaimer An external and internal positive and negative controls are appropriate for the histochemical, immunohistochemical and immunofluorescence stain(s) in this case (if any), except where stated explicitly. The performance characteristics of the stain(s) cited in this report were developed and its performance characteristic determined by the Dermatopathology Laboratory at [facility], directed by Dr. Lakisha Hennessy. These tests need not be, and therefore are not, approved by the [place] Food and Drug Administration. The tests are used for clinical purposes. Billing Codes Specimen Charges Stain Charges 62516 14025 1 1 4 4:48 PM CDT DERMATOPATHOLOGY LABORATORY Embedded Images 4:48 PM CDT DERMATOPATHOLOGY LABORATORY Pathology/Cytology TISSUE SPECIMEN FROM SKIN / Unknown 05/01/2024 9:52 AM CDT 05/02/2024 4:31 PM CDT Miscellaneous samples (specimen) TISSUE SPECIMEN FROM SKIN / Unknown 05/01/2024 9:52 AM CDT 05/02/2024 4:31 PM CDT us Rocio Mishra DO LAB - PATHOLOGY/CYTOLOGY ORDERABLES Final Result DERMATOPATHOLOGY LABORATORY [facility] - Department of Dermatology [facility] Specialized Medicine [address] [place] [address], [address] Floor [address] [phone] documented in this encounter Visit Diagnoses Not on filedocumented in this encounter
--- OUTSIDE RECORDS SUMMARY | 2025-05-20 07:02 | XMS_ITS | Encounter Summary ---
Author Organization [facility] Facility Care Team Providers Care Airbrush Artist Photography Name Role Phone Cristobal Dotson Primary Care Provider [phone] Encounter Details Date Type Department Care Team (Latest Contact Info) Description 04/01/2018 Orders Only MMG CLINCONV Provider, MD Yenny [address] [place] [address] Social History Tobacco Use Types Packs/Day Years Used Date Smoking Tobacco: Never Assessed Comments Unknown Sex and Gender Information Value Date Recorded Sex Assigned at Not on file Legal Sex Female 11:59 PM TIGHT COOPER Gender Identity Not on file Sexual Orientation [...] on filedocumented in this encounter Care Teams Airbrush Artist Photography Relationship Specialty Start Date End Date Cristobal Dotson [address] [place] [address] PCP - General Emergency Medicine 01/23/19 documented as of this encounter
--- OUTSIDE RECORDS SUMMARY | 2025-05-20 07:02 | XMS_ITS | Clinical Summary ---
Author Organization [facility] Address [address] [place] [address] Care Team Providers Care Rib Matcher And Fitter Name Role Phone Unavailable Primary Care Provider Unavailabl e Source Comments [facility],non-owned Affiliates and Associated Physician Practices is amultiple site organization consisting of ambulatory clinics and hospital sitesin [place], [place], [place] and [place]. This disclosure is being madepursuant to the Care Everywhere program and may not contain all information available regarding this patient. Last updated 18.[facility] [employer] Social History Tobacco Use Types Packs/Day Years Used Date Smoking Tobacco: Never Assessed Comments Unknown Sex and Gender Information Value Date Recorded Sex Assigned at Not on file Legal Sex Female 11:52 AM CDT Gender Identity Not on file Sexual Orientation Not on file Plan of Treatment Health Maintenance Due Date Last Done Comments BONE DENSITY TESTING 1950 MEDICARE AWV 12 MONTHS 1950 HEPATITIS C SCREENING 02/12/1966 DTAP/TDAP/TD VACCINES (1 - Tdap) 02/16/1967 PNEUMOCOCCAL VACCINE 50+ (1 of 1 - PCV) 02/16/1998 ZOSTER VACCINE (1 of 2) 02/16/1998 Respiratory Syncytial Virus (RSV) Vaccine Pt: or over 60 yrs (1 - 1-dose 75+ series) 02/16/2023 COVID-19 VACCINE ( - 2023-2 5 season) 2024 DEPRESSION SCREENING 10/22/2024 INFLUENZA VACCINE (#1) 2025 HEPATITIS B VACCINE Aged Out No longe r eligible based on patient's age to complete this topic HIB VACCINE Aged Out No longer eligi ble based on patient's age to complete this topic HPV VACCINE Aged Out No longer eligi ble based on patient's age to complete this topic MENINGOCOCCAL (Group B) VACC INE SHARED DECISION-MAKING Aged Out No longer eligibl e based on patient's age to complete this topic MENINGOCOCCAL GROUPS A/C/Y/W VACCINE Aged Out No longer eligible b ased on patient's age to complete this topic Insurance MEDICARE [facility] * Guarantor: OMID CHAVEZ Account Type Relation to Patient Date of Phone Billing Address Personal/Family [address] [place] [address] MEDICARE [facility] * Guarantor: OMID CHAVEZ Account Type Relation to Patient Date of Phone Billing Address Personal/Family [address] [place] [address] MEDICARE [facility]
--- OUTSIDE RECORDS SUMMARY | 2025-05-20 07:02 | XMS_ITS | Encounter Summary ---
Author Organization [facility] Address [address] [facility] [place] [address] Care Team Providers Care Needle Valve Operator Name Role Phone Unavailable Primary Care Provider Unavailabl e Encounter Details Date Type Department Care Team (Late st Contact Info) Description 12/03/2024 Lab Requisition [facility] - DermPath Lab [address] [facility], [place] [address] Rocio Mishra DO [address] [facility] 3 [place] [address] Social History Tobacco Use Types Packs/Day Years [...] Priority Date/Time Associated Diagnosis Comments DERMATOPATHOLOGY Routine 12/03/2024 9:03 AM JOB ANALYST documented in this encounter Results * DERMATOPATHOLOGY (12/03/2024 9:03 AM JOB ANALYST) Case Report Dermatopathology Report Case: [id number] Authorizing Provider: Rocio Mishra DO Collected: 12/03/2024 09:03 AM Ordering Location: [facility]ician [facility] - Received: 12/03/2024 02:19 PM DermPath Lab Pathologist: Rita Bernard MD Specimen: Skin, right paraspinal back 12:51 PM JOB ANALYST DERMATOPATHOLOGY LABORATORY Final Diagnosis Specimen A. SKIN, right paraspinal back: DERMAL SCAR RESIDUAL SQUAMOUS CELL CARCINOMA NOT IDENTIFIED (L90.5) INCIDENTAL INTRADERMAL MELANOCYTIC NEVUS; NOT PRESENT AT MARGIN (D22.5) 12:51 PM JOB ANALYST DERMATOPATHOLOGY LABORATORY at 1251 JOB ANALYST Clinical History Bx Proven, R/O SCCIS 12:51 PM [facility] DERMATOPATHOLOGY LABORATORY Gross Description Specimen A: Received is one formalin filled container labeled with the patient's name and designated right paraspinal back. The specimen consists of a non-oriented ellipse of skin measuring 89e62g9 mm. The epidermal surface is unremarkable. The margin is inked green. The 12 o'clock and 6 o'clock tips are submitted in cassette 1. The remainder of the ellipse is serially sectioned and submitted in cassette 2-4. Jar 0. 12:51 PM [facility] DERMATOPATHOLOGY LABORATORY Microscopic Description Specimen A. SKIN, right paraspinal back: There are fibroblasts and collagen bundles oriented parallel to the skin surface. There are elongated blood vessels, some of which are oriented perpendicular to the skin surface. No residual squamous cell carcinoma is identified. In a separate focus, there are nests of cytologically bland melanocytes within the dermis that mature with depth. Additionally, there is a focus of slight epidermal hyperplasia and hyperkeratosis, with a zone of keratinocyte ballooning and hypergranulosis centered on the stratum granulosum. 12:51 PM [facility] DERMATOPATHOLOGY LABORATORY Disclaimer An external and internal positive and negative controls are appropriate for the histochemical, immunohistochemical and immunofluorescence stain(s) in this case (if any), except where stated explicitly. The performance characteristics of the stain(s) cited in this report were developed and its performance characteristic determined by the Dermatopathology Laboratory at [facility], directed by Dr. Lakisha Hennessy. These tests need not be, and therefore are not, approved by the [place] Food and Drug Administration. The tests are used for clinical purposes. Billing Codes Specimen Charges Stain Charges 85448 1 12:51 PM [facility] DERMATOPATHOLOGY LABORATORY Embedded Images 12:51 PM [facility] DERMATOPATHOLOGY LABORATORY Pathology/Cytolo gy TISSUE SPECIMEN FROM SKIN / Unknown 12/03/2024 9:03 AM JOB ANALYST 12/03/2024 2:19 PM JOB ANALYST Rocio Mishra DO LAB - PATHOLOGY/CYTOLOGY ORDERABLES Final Result DERMATOPATHOLOGY LABORATORY [facility] - Department of Dermatology [facility] Specialized Medicine [address] [place] [address], [address] [phone] documented in this encounter Visit Diagnoses Not on filedocumented in this encounter
--- OUTSIDE RECORDS SUMMARY | 2025-05-20 07:03 | XMS_ITS | Encounter Summary ---
Author Organization [facility] Facility Care Team Providers Care Diversified Crops Farmworker Name Role Phone Cristobal Dotson Primary Care Provider [phone] Encounter Details Date Type Department Care Team (Latest Contact Info) Description 09/20/2016 Orders Only MMG CLINCONV Provider, MD Yenny [address] [place] [address] Social History Tobacco Use Types Packs/Day Years Used Date Smoking Tobacco: Never Assessed Comments Unknown Sex and Gender Information Value Date Recorded Sex Assigned at Not on file Legal Sex Female 11:59 PM MANAGER CLINIC Gender Identity Not on file Sexual Orientation Not on file documented as of this encounter Plan of Treatment Not on file documented as of this encounter Procedures Procedure Name Priority Date/Time Associated Diagnosis Comments PROCEDURE - RESULT 09/20/2016 12 :00 AM MANAGER CLINIC documented in this encounter Results * PROCEDURE - RESULT (09/20/2016 12:00 AM MANAGER CLINIC) Narrative 09/20/2016 12:00 AM MANAGER CLINIC Ordered by an unspecified provider. us Historical Provider Final Res ult documented in this encounter Visit Diagnoses Not on filedocumented in this encounter Care Teams Diversified Crops Farmworker Relationship Specialty Start Date End Date Cristobal Dotson [address] [place] [address] PCP - General Emergency Medicine 01/23/19 documented as of this encounter
--- OUTSIDE RECORDS SUMMARY | 2025-05-20 07:03 | XMS_ITS | Encounter Summary ---
Author Organization [facility] Facility Care Team Providers Care Missile Tracking Technician Name Role Phone Cristobal Dotson Primary Care Provider [phone] Encounter Details Date Type Department Care Team (Latest Contact Info) Description 09/11/2016 Orders Only MMG CLINCONV Provider, MD Yenny [address] [place] [address] Social History Tobacco Use Types Packs/Day Years Used Date Smoking Tobacco: Never Assessed Comments Unknown Sex and Gender Information Value Date Recorded Sex Assigned at Not on file Legal Sex Female 11:59 PM TAKER OFF BRAKER MACHINE Gender Identity Not on file Sexual Orientation Not on file documented as of this encounter Plan of Treatment Not on file documented as of this encounter Procedures Procedure Name Priority Date/Time Associated Diagnosis Comments PROCEDURE - RESULT 09/19/2016 12 :00 AM TAKER OFF BRAKER MACHINE documented in this encounter Results * PROCEDURE - RESULT (09/19/2016 12:00 AM TAKER OFF BRAKER MACHINE) Narrative 09/19/2016 12:00 AM TAKER OFF BRAKER MACHINE Ordered by an unspecified provider. us Historical Provider Final Res ult documented in this encounter Visit Diagnoses Not on filedocumented in this encounter Care Teams Missile Tracking Technician Relationship Specialty Start Date End Date Cristobal Dotson [address] [place] [address] PCP - General Emergency Medicine 01/23/19 documented as of this encounter
--- OUTSIDE RECORDS SUMMARY | 2025-05-20 07:03 | XMS_ITS | Clinical Summary ---
Author Organization [facility] Address [facility] [place] [address] Care Team Providers Care Law Reporter Name Role Phone Cristobal Dotson Primary Care Provider [phone] Allergies Active Allergy Reactions Criticality Noted Date [...] on file Legal Sex Female 11:59 PM LAUNDRETTE OWNER Gender Identity Not on file Sexual Orientation [...] 9:21 AM CDT Height 160 cm (5' 3) 02/12/2019 9:21 AM CDT Body Mass Index 39.68 02/12/2019 9:21 AM CDT Plan of Treatment Not on file Insurance MEDICARE [facility] Care Teams Law Reporter Relationship Specialty Start Date End Date Cristobal Dotson [address] [place] [address] PCP - General Emergency Medicine 01/23/19
--- OUTSIDE RECORDS SUMMARY | 2025-05-20 07:03 | XMS_ITS | Referral Summary ---
Author Organization [facility] Address [facility] [place] [address] Care Team Providers Care Medical Education Specialist Name Role Phone Cristobal Dotson Primary Care Provider Allergies Active Allergy Reactions Criticality Noted Date [...] on file Legal Sex Female 11:59 PM TRUCK SERVICE TECHNICIAN Gender Identity Not on file Sexual [...] of Treatment Not on file Insurance MEDICARE [facility] Care Teams Medical Education Specialist Relationship Specialty Start Date End Date Cristobal Dotson [address] [place] [address] PCP - General Emergency Medicine 01/23/19
--- NOTE | 2025-05-20 07:37 | ECG_ITS ---
Test Date: 2025-05-20 08:14:19 Measurements Intervals [place] Rate: 71 P: 64 RI: 189 QRS: 59 QRSD: 92 T: 64 QT: 371 QTc: 403 Interpretive Statements SINUS RHYTHM WITH OCCASIONAL VENTRICULAR PREMATURE COMPLEXES BORDERLINE ECG No previous ECG available for comparison Electronically Signed On 05-20-2025 08:18:53 CDT by Miguel Madera M.D.
[2025-05-20 11:38] LABS: Anion Gap 10 mmol/L (4-12); Blood Urea Nitrogen 20 mg/dL (7-17); Calcium 9.6 mg/dL (8.4-10.2); Carbon Dioxide 24 mmol/L (22-30); Chloride 107 mmol/L (98-107); Estimated Glomerular Filt Rate 50; Glucose 112 mg/dL (65-110); Potassium 4.0 mmol/L (3.4-5.0); Sodium 141 mmol/L (137-145)
== END 2025-05-20 06:59 | disposition home or self-care (01) ==
PROVIDERS: PCP Family Medicine; Visit Provider Anesthesiology
DX: I12.9 Hypertensive chronic kidney disease with stage 1 through stage 4 chronic kidney disease, or unspecified chronic kidney disease (principal); N18.30 Chronic kidney disease, stage 3 unspecified
CPT/HCPCS: 36415; 80048; 93005

== ENCOUNTER 2025-06-04 09:02 | Day surgery (SDC) | payer MEDICARE, OTHER, SELFPAY ==
[2025-05-14 15:17] VITALS: BMI 38.7
[2025-05-18 14:21] VITALS: BMI 38.6
--- NOTE | 2025-06-04 07:03 | WPDHPUPDATE1 ---
History and Physical Update Update Date/Time: 06/04/25 07:03 Patient seen and examined in pre-operative holding area. No interval change in medical history or symptoms. Patient recalls previous discussion of benefits and alternatives to procedure. Continues to desire to proceed with right endoscopic possible open carpal tunnel release . Reviewed procedure, post-op expectations and risks including but not limited to bleeding, infection, injury to tendon/nerve/vessel, decreased hand function, stiffness, RSD, no change or worsening of symptoms. I discussed the possible use of assistants and their participation in the case. Patient stated understanding and signed the consent form wishing to proceed.
--- NOTE | 2025-06-04 07:03 | W.PM.PROC2 ---
Procedure Note - Detailed Date of Procedure 06/04/25 Pre-op Diagnosis Bilateral Carpal Tunnel Syndrome Post-op Diagnosis Same Procedure Performed right ectr Surgeon Yaima Conn MD Service Coordinator [facility] eduardo landers pa-c Anesthesia MAC Description of Procedure INFORMED CONSENT: The patient was seen and examined and marked in the pre-op area.? The patient signed the consent form. PROCEDURE IN DETAIL:The patient taken back to OR on the stretcher in supine position. Time out performed with anesthesia, surgeon and staff agreeing on patient's name site and surgery to be performed SCDs were placed on the lower extremities and inflated. A tourniquet was placed on {right upper extremity and antibiotics given IV After anesthesia administered sedation I injected {5}cc 1%lido with epi and 0.5% marcaine plain at the operative site The?{right upper extremity}?was prepped and draped in sterile fashion the??{right upper extremity} was? exsanguinated with Esmarch bandage and tourniquet inflated to 250mmHg I made a transverse incision in the {right} volar distal wrist crease through skin and dermis with 15 blade scalpel.? Littler scissors spread down to antebrachial fascia. A small incision was made in antebrachial fascia allowing access to Carpal tunnel. I proceeded with sequential dilation staying in line with the ring finger and hugging the hook of the hamate.? I then used the synovial elevator to free any adhesions from the underside of the transverse carpal ligament. Next I was able to insert the Microaire endoscopic carpal tunnel device with direct visualization of the transverse fibers on the monitor and proceeded with complete segmental retrograde release of the ligament in its entirety.? I irrigated with normal saline and closed with 4-0 monocryl for dermis and subcuticular closure. A dressing of Dermabond, 4x4, shea, and a volar splint was applied for patient safety, security, and comfort and secured with an mikal bandage after the tourniquet was let down noting the hand was warm and well perfused. The patient was then awaken from anesthesia and transferred to the recovery room in stable condition.? Complications - none EBL- 0cc Disposition - home in stable condition eduardo Landers PA-C was essential for positioning, retraction, closure and dressing placement [facility] [place] - Charge Forward: Surgery Billing ([id number] for eduardo)
--- OUTSIDE RECORDS SUMMARY | 2025-06-04 09:14 | XMS_ITS | Encounter Summary ---
Author Organization [facility] Facility Care Team Providers Care Biomedical Engineer Name Role Phone Cristobal Dotson Primary Care Provider [phone] Encounter Details Date Type Department Care Team (Latest Contact Info) Description 04/01/2018 Orders Only [facility] CLINCONV Provider, MD Yenny [address] [place] [address] Social History Tobacco Use Types Packs/Day Years Used Date Smoking Tobacco: Never Assessed Comments Unknown Sex and Gender Information Value Date Recorded Sex Assigned at Not on file Legal Sex Female 11:59 PM LITHOPLATE MAKER Gender Identity Not on file Sexual Orientation [...] on filedocumented in this encounter Care Teams Biomedical Engineer Relationship Specialty Start Date End Date Cristobal Dotson [address] [place] [id number] PCP - General Emergency Medicine 01/23/19 documented as of this encounter
--- OUTSIDE RECORDS SUMMARY | 2025-06-04 09:14 | XMS_ITS | Continuity of Care Document ---
Author Organization [facility] Address [address] [place] [address] Exec utive [facility] [address] [place] [address] Phone Care Team Providers Care Supervisor Aluminum Fabrication Name Role Phone Castaneda OD, Elie Unavailable Unavailable Procedures Procedure Date Eye Exam & Treatment Refraction Advance Directives Directive Yes / No Effective Date File Name No Information Encounters Encounter Description Practice Location Reason(s) For Visit Diagnoses Date Provider Providers Copied on Encounter [facility], [address] [place] [address] [address], [place], [place], [id number], [place] tel:[phone] [facility] No Information Dec-0 6-200 7 Casatneda OD Elie. [address] , [address], [place], [address], [place]. tel:[phone] Family History Family Member Type Diagnosis Age At Onset No Information Payers Payer name Insurance type Covered libertarian ID Authoriza tibrittany(s) [facility] Commercial CI [id number] Social History Type Description Quantity Date Captured [...]
--- OUTSIDE RECORDS SUMMARY | 2025-06-04 09:14 | XMS_ITS | Encounter Summary ---
Author Organization [facility] Facility Care Team Providers Care Industrial Engineering Professor Name Role Phone Cristobal Dotson Primary Care Provider [phone] Encounter Details Date Type Department Care Team (Latest Contact Info) Description 02/11/2018 Orders Only [facility]G CLINCONV Provider, MD Yenny [address] [place] [address] Social History Tobacco Use Types Packs/Day Years Used Date Smoking Tobacco: Never Assessed Comments Unknown Sex and Gender Information Value Date Recorded Sex Assigned at Not on file Legal Sex Female 11:59 PM SUPERVISOR EDUCATION Gender Identity Not on file Sexual Orientation [...] on filedocumented in this encounter Care Teams Industrial Engineering Professor Relationship Specialty Start Date End Date Cristobal Dotson [address] [place] [address] PCP - General Emergency Medicine 01/23/19 documented as of this encounter
--- OUTSIDE RECORDS SUMMARY | 2025-06-04 09:14 | XMS_ITS | Encounter Summary ---
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
--- OUTSIDE RECORDS SUMMARY | 2025-06-04 09:15 | XMS_ITS | Encounter Summary ---
Author Organization [facility] Facility Care Team Providers Care Breast Buffer Name Role Phone Cristobal Dotson Primary Care Provider [phone] Encounter Details Date Type Department Care Team (Latest Contact Info) Description 09/11/2016 Orders Only [facility]G CLINCONV Provider, MD Yenny [address] [place] [address] Social History Tobacco Use Types Packs/Day Years Used Date Smoking Tobacco: Never Assessed Comments Unknown Sex and Gender Information Value Date Recorded Sex Assigned at Not on file Legal Sex Female 11:59 PM SUPERVISOR IRRIGATION Gender Identity Not on file Sexual Orientation Not on file documented as of this encounter Plan of Treatment Not on file documented as of this encounter Procedures Procedure Name Priority Date/Time Associated Diagnosis Comments PROCEDURE - RESULT 09/19/2016 12 :00 AM SUPERVISOR IRRIGATION documented in this encounter Results * PROCEDURE - RESULT (09/19/2016 12:00 AM SUPERVISOR IRRIGATION) Narrative 09/19/2016 12:00 AM SUPERVISOR IRRIGATION Ordered by an unspecified provider. us Historical Provider Final Res ult documented in this encounter Visit Diagnoses Not on filedocumented in this encounter Care Teams Breast Buffer Relationship Specialty Start Date End Date Cristobal Dotson [address] [place] [address] PCP - General Emergency Medicine 01/23/19 documented as of this encounter
--- OUTSIDE RECORDS SUMMARY | 2025-06-04 09:15 | XMS_ITS | Clinical Summary ---
Author Organization [facility] Address [address] [place] [address] Care Team Providers Care Surveyor Name Role Phone Unavailable Primary Care Provider Unavailabl e Source Comments [facility],non-owned Affiliates and Associated Physician Practices is amultiple site organization consisting of ambulatory clinics and hospital sitesin [place], [place], [place] and [place]. This disclosure is being madepursuant to the Care Everywhere program and may not contain all information available regarding this patient. Last updated 18.[facility] [place] Social History Tobacco Use Types Packs/Day Years [...] age to complete this topic Insurance MEDICARE [facility] * Guarantor: OMID CHAVEZ Account Type Relation to Patient Date of Phone Billing Address Personal/Family [address] [place] [address] MEDICARE [facility] * Guarantor: OMID CHAVEZ Account Type Relation to Patient Date of Phone Billing Address Personal/Family [address] [place] [address] MEDICARE [facility]
--- OUTSIDE RECORDS SUMMARY | 2025-06-04 09:15 | XMS_ITS | Clinical Summary ---
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
--- OUTSIDE RECORDS SUMMARY | 2025-06-04 09:15 | XMS_ITS | Encounter Summary ---
Author Organization [facility] Address [address] [facility] [place] [address] Care Team Providers Care Maori Physiotherapist Name Role Phone Unavailable Primary Care Provider Unavailabl e Encounter Details Date Type Department Care Team (Late st Contact Info) Description 05/01/2024 Lab Requisition [facility] - DermPath Lab [address] [facility] [place] [address] Rocio Mishra DO [address] [facility] [address] [place] [address] Social History Tobacco Use Types Packs/Day Years [...] AM CDT) Case Report Dermatopathology Report Case: [id number] Authorizing Provider: Rocio Mishra DO Collected: 05/01/2024 09:52 AM Ordering Location: [facility] - Received: 05/02/2024 04:31 PM [...] characteristic determined by the Dermatopathology Laboratory at [facility], directed by Dr. Lakisha Hennessy. These tests need not be, and therefore are not, approved by the [place] Food and Drug Administration. The tests are used for clinical purposes. Billing Codes Specimen Charges Stain Charges 26614 11542 1 1 4 4:48 PM CDT DERMATOPATHOLOGY LABORATORY Embedded Images 4:48 PM CDT DERMATOPATHOLOGY LABORATORY Pathology/Cytology TISSUE SPECIMEN FROM SKIN / Unknown 05/01/2024 9:52 AM CDT 05/02/2024 4:31 PM CDT Miscellaneous samples (specimen) TISSUE SPECIMEN FROM SKIN / Unknown 05/01/2024 9:52 AM CDT 05/02/2024 4:31 PM CDT us Rocio Mishra DO LAB - PATHOLOGY/CYTOLOGY ORDERABLES Final Result DERMATOPATHOLOGY LABORATORY [facility] - Department of Dermatology [facility] Specialized Medicine [address] [place] [address], [address] [phone] documented in this encounter Visit Diagnoses Not on filedocumented in this encounter
--- OUTSIDE RECORDS SUMMARY | 2025-06-04 09:15 | XMS_ITS | Encounter Summary ---
Author Organization [facility] Facility Care Team Providers Care Deckhand Maintenance Name Role Phone Cristobal Dotson Primary Care Provider [phone] Encounter Details Date Type Department Care Team (Latest Contact Info) Description 09/20/2016 Orders Only MMG CLINCONV Provider, MD Yenny [address] [place] [address] Social History Tobacco Use Types Packs/Day Years Used Date Smoking Tobacco: Never Assessed Comments Unknown Sex and Gender Information Value Date Recorded Sex Assigned at Not on file Legal Sex Female 11:59 PM LEGISLATORS Gender Identity Not on file Sexual Orientation Not on file documented as of this encounter Plan of Treatment Not on file documented as of this encounter Procedures Procedure Name Priority Date/Time Associated Diagnosis Comments PROCEDURE - RESULT 09/20/2016 12 :00 AM LEGISLATORS documented in this encounter Results * PROCEDURE - RESULT (09/20/2016 12:00 AM LEGISLATORS) Narrative 09/20/2016 12:00 AM LEGISLATORS Ordered by an unspecified provider. us Historical Provider Final Res ult documented in this encounter Visit Diagnoses Not on filedocumented in this encounter Care Teams Deckhand Maintenance Relationship Specialty Start Date End Date Cristobal Dotson [address] [place] [address] PCP - General Emergency Medicine 01/23/19 documented as of this encounter
--- OUTSIDE RECORDS SUMMARY | 2025-06-04 09:15 | XMS_ITS | Encounter Summary ---
Author Organization [facility] Address [address] [facility] [place] [address] Care Team Providers Care Pipeman Name Role Phone Unavailable Primary Care Provider Unavailabl e Encounter Details Date Type Department Care Team (Late st Contact Info) Description 11/13/2024 Lab Requisition [facility] - DermPath Lab [address] [facility], [place] [address] Rocio Mishra DO [address] [facility] [address] [place] [address] Social History Tobacco Use Types Packs/Day Years [...] Comments DERMATOPATHOLOGY Routine 11/13/2024 11:0 0 AM ETHNIC STUDIES PROFESSOR documented in this encounter Results * DERMATOPATHOLOGY (11/13/2024 11:00 AM ETHNIC STUDIES PROFESSOR) Case Report Dermatopathology Report Case: [id number] Authorizing Provider: Rocio Mishra DO Collected: 11/13/2024 11:00 AM Ordering Location: [facility] Physician [facility] - Received: 11/14/2024 06:51 AM DermPath Lab Pathologist: Nicol Tejeda MD Specimen: Skin, right paraspinal back 1:13 PM ETHNIC STUDIES PROFESSOR DERMATOPATHOLOGY LABORATORY Final Diagnosis Specimen A. 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 The specimen consists of a shave biopsy measuring 17x8x1 mm. Jar 0. 1:13 PM [facility] DERMATOPATHOLOGY LABORATORY Microscopic Description Specimen A. SKIN, right paraspinal back: The epidermis shows parakeratosis, full thickness disorderly maturation of keratinocytes, mitoses at different levels, and dyskeratotic cells. 1:13 PM [facility] DERMATOPATHOLOGY LABORATORY Disclaimer An external and internal positive and negative controls are appropriate for the histochemical, immunohistochemical and immunofluorescence stain(s) in this case (if any), except where stated explicitly. The performance characteristics of the stain(s) cited in this report were developed and its performance characteristic determined by the Dermatopathology Laboratory at [facility], directed by Dr. Lakisha Hennessy. These tests need not be, and therefore are not, approved by the [place] Food and Drug Administration. The tests are used for clinical purposes. Billing Codes Specimen Charges Stain Charges 11946 1 1:13 PM [facility] DERMATOPATHOLOGY LABORATORY Embedded Images 1:13 PM [facility] DERMATOPATHOLOGY LABORATORY Pathology/Cytolo gy TISSUE SPECIMEN FROM SKIN / Unknown 11/13/2024 11:00 AM ETHNIC STUDIES PROFESSOR 11/14/2024 6:51 AM ETHNIC STUDIES PROFESSOR Rocio Mishra DO LAB - PATHOLOGY/CYTOLOGY ORDERABLES Final Result DERMATOPATHOLOGY LABORATORY [facility] - Department of Dermatology [address], [address] [phone] documented in this encounter Visit Diagnoses Not on filedocumented in this encounter
--- OUTSIDE RECORDS SUMMARY | 2025-06-04 09:15 | XMS_ITS | Encounter Summary ---
Author Organization [facility] Address [address] [facility] [place] [address] Care Team Providers Care Product Transfer Pumper Name Role Phone Unavailable Primary Care Provider Unavailabl e Encounter Details Date Type Department Care Team (Late st Contact Info) Description 12/03/2024 Lab Requisition [facility] - DermPath Lab [address] [facility], [place] [address] Rocio Mishra DO [address] [facility] [address] [place] [address] Social History Tobacco Use Types Packs/Day Years [...] Diagnosis Comments DERMATOPATHOLOGY Routine 12/03/2024 9:03 AM METER MAKER documented in this encounter Results * DERMATOPATHOLOGY (12/03/2024 9:03 AM METER MAKER) Case Report Dermatopathology Report Case: [id number] Authorizing Provider: Rocio Mishra DO Collected: 12/03/2024 09:03 AM Ordering Location: [facility] Physician [facility] - Received: 12/03/2024 02:19 PM DermPath Lab Pathologist: Rita Bernard MD Specimen: Skin, right paraspinal back 12:51 PM METER MAKER DERMATOPATHOLOGY LABORATORY Final Diagnosis Specimen A. 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 The specimen consists of a non-oriented ellipse of skin measuring 23z80t9 mm. The epidermal surface is unremarkable. The margin is inked green. The 12 o'clock and 6 o'clock tips are submitted in cassette 1. The remainder of the ellipse is serially sectioned and submitted in cassette 2-4. Jar 0. 12:51 PM [facility] DERMATOPATHOLOGY LABORATORY Microscopic Description Specimen A. [...] centered on the stratum granulosum. 12:51 PM [facility] DERMATOPATHOLOGY LABORATORY Disclaimer An external and internal positive and negative controls are appropriate for the histochemical, immunohistochemical and immunofluorescence stain(s) in this case (if any), except where stated explicitly. The performance characteristics of the stain(s) cited in this report were developed and its performance characteristic determined by the Dermatopathology Laboratory at [facility], directed by Dr. Lakisha Hennessy. These tests need not be, and therefore are not, approved by the [place] Food and Drug Administration. The tests are used for clinical purposes. Billing Codes Specimen Charges Stain Charges 34217 1 12:51 PM [facility] DERMATOPATHOLOGY LABORATORY Embedded Images 12:51 PM [facility] DERMATOPATHOLOGY LABORATORY Pathology/Cytolo gy TISSUE SPECIMEN FROM SKIN / Unknown 12/03/2024 9:03 AM METER MAKER 12/03/2024 2:19 PM METER MAKER Rocio Mishra DO LAB - PATHOLOGY/CYTOLOGY ORDERABLES Final Result DERMATOPATHOLOGY LABORATORY [facility] - Department of Dermatology [facility] Specialized Medicine [address] [place] [address], [address] [phone] documented in this encounter Visit Diagnoses Not on filedocumented in this encounter
[2025-06-04 09:17] VITALS: BP 138/65; PULSE 74; RESP 16; TEMP 36.4; O2SAT 96
[2025-06-04] MEDS: ACETAMINOPHEN 500 MG TABLET 1000 MG PO (09:20)
--- NOTE | 2025-06-04 10:15 | P.PNAN_ITS ---
Anes - Initial Pre Proc Eval Procedure: Operation Date: 06/04/25 11:00 Proposed Procedures p Right Endoscopic Carpal Tunnel Release, Possible Open Carpal Tunnel Release - Yaima Conn MD Date/Time: 06/04/25 10:15 Surgeon: Yaima Conn MD Pre Op Diagnosis: Bilateral Carpal Tunnel Syndrome Patient Data Age: 75 Gender: F Height: 1.63 m Weight: 103.3 kg Last Vital Signs Temp 97.6 F 06/04/25 09:17 Pulse 74 06/04/25 09:17 Resp 16 06/04/25 09:17 BP 138/65 06/04/25 09:17 Pulse Ox 96 06/04/25 09:17 O2 Del Method Room Air 06/04/25 09:17 Allergies Allergy/AdvReac Type Severity Reaction Status Date / Time cefazolin AdvReac Severe Other Verified 06/04/25 09:16 atorvastatin AdvReac Intermediate Joint Pain Verified 05/18/25 14:19 Cephalosporins AdvReac Intermediate VAGINAL Verified 05/18/25 14:19 ITCHING Home Medications ?Medication ?Instructions ?Recorded ?Confirmed ?Type levothyroxine 75 mcg tablet 75 mcg PO DAILY #90 tabs 10/06/24 06/04/25 Rx lisinopril 20 See Rx Instructions .Route 10/13/24 06/04/25 Rx mg-hydrochlorothiazide 25 mg tablet .COMPLEX #90 tabs rosuvastatin 20 mg tablet 20 mg PO QHS #90 tabs 12/31/24 06/04/25 Rx tramadol 50 mg tablet 50 mg PO Q6H PRN pain #12 tabs 06/04/25 Rx Patient hx anesthesia problems: none Family hx anesthesia problems: none Results Review: All pre-operative results and documents have been reviewed as part of the pre- operative evaluation. 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 Dyslipidemia Chronic low back pain without sciatica Essential (primary) hypertension Unspecified osteoarthritis, unspecified site Hypothyroidism (acquired) CKD (chronic kidney disease) stage 3, GFR 30-59 ml/min Surgical History Surgical History S/P skin biopsy back History of appendectomy 02/1968 History of cholecystectomy 08/27/1997 History of total hysterectomy 09/1979 Hx of total knee arthroplasty right - 09/21/2016, left - 03/2018 Family History Family History Sibling Seizure Other Diabetes mellitus Family history of coronary artery disease Hypertension Social History Social History Smoking status: Never smoker Second hand tobacco smoke exposure: No Alcohol intake: current Drinks per week: 0 Alcohol use details: consumes 2 beers a year Substance use: never Substance use type: does not use Lack of Transportation: No Lack of Food: Never True Current Housing: I Have Housing Concerned About Future Housing: No Difficulty Paying Gas/Electric Bills: No Difficulty Paying for Meds: No Currently Unemployed: No Education: High School Diploma/GED Difficulty w/ Childcare or Family Care: No Living arrangements: with family Additional living arrangements comments: Grandson Occupation/Education: retired Gender identity (if verbalized by the patient): Female Spiritual care concerns: No Agree to blood products: Yes Anes - Eval Final PreProcedure Day of Procedure 06/04/25 10:15 Heart: regular rate and rhythm Lungs: clear to auscultation Airway: Mallampati scale class II Last oral intake: >/= 8 hours ASA classification: II Anesthetic plan: proceed Anesthesia type and monitoring: monitored anesthesia care Results Review: All pre-operative results and documents have been reviewed as part of the pre- operative evaluation. Informed Consent: The patient's anesthetic plan and its attendant risks and benefits were discussed with the patient/family/POA. Questions were solicited and answers provided to the satisfaction of the patient/family/POA.
[2025-06-04] MEDS: ceFAZolin SODIUM 2 GM/20 ML SW SYRINGE IV PUSH (10:38)
--- NOTE | 2025-06-04 10:49 | WPDANESPN ---
Anes - Prog Note Post-Op Date/Time: 06/04/25 10:49 Vital Signs: Last Vital Signs Temp 97.6 F 06/04/25 09:17 Pulse 74 06/04/25 09:17 Resp 16 06/04/25 09:17 BP 138/65 06/04/25 09:17 Pulse Ox 96 06/04/25 09:17 O2 Del Method Room Air 06/04/25 09:17 Pain Score (VAS): no Patient Feedback: Patient satisfied with anesthetic care.
[2025-06-04] MEDS: LACTATED RINGERS 1,000 ML 30 ML IV CONT (10:51)
[2025-06-04] MEDS: LIDO 1%/EPINEPHRINE 1:100,000 20 ML VIAL 2.5 ML INFILTRATE (10:54)
[2025-06-04 10:58] VITALS: BP 120/62; PULSE 68; RESP 16; O2SAT 94
[2025-06-04 11:32] VITALS: BP 116/56; PULSE 69; O2SAT 95
== END 2025-06-04 11:38 | disposition home or self-care (01) ==
PROVIDERS: PCP Family Medicine; Visit Provider Plastic Surgery
PROC: 01N54ZZ Release Median Nerve, Percutaneous Endoscopic Approach (ICD-10-PCS; CPT 29848; principal; 2025-06-04 11:00)
DX: G56.01 Carpal tunnel syndrome, right upper limb (principal)
CPT/HCPCS: 29848

== ENCOUNTER 2025-07-30 09:03 | Day surgery (SDC) | payer MEDICARE, OTHER, SELFPAY ==
[2025-06-18 11:59] VITALS: BMI 39.4
--- NOTE | 2025-07-30 06:59 | P.OP_ITS ---
Procedure Note - Detailed Date of Procedure 07/30/25 Pre-op Diagnosis Left Carpal Tunnel Syndrome Post-op Diagnosis Same Procedure Performed left ectr Surgeon Yaima Conn MD Geospatial Applications Developer Eduardo Moore PA-C Anesthesia MAC Description of Procedure INFORMED CONSENT: The patient was seen and examined and marked in the pre-op area.? The patient signed the consent form. PROCEDURE IN DETAIL:The patient taken back to OR on the stretcher in supine position. Time out performed with anesthesia, surgeon and staff agreeing on patient's name site and surgery to be performed SCDs were placed on the lower extremities and inflated. A tourniquet was placed on {left} upper extremity and antibiotics given IV After anesthesia administered sedation I injected {5}cc 1%lido with epi and 0.5% marcaine plain at the operative site The?{left upper extremity}?was prepped and draped in sterile fashion the??{left upper extremity} was? exsanguinated with Esmarch bandage and tourniquet inflated to 250mmHg I made a transverse incision in the {left} volar distal wrist crease through skin and dermis with 15 blade scalpel.? Littler scissors spread down to antebrachial fascia. A small incision was made in antebrachial fascia allowing access to Carpal tunnel. I proceeded with sequential dilation staying in line with the ring finger and hugging the hook of the hamate.? I then used the synovial elevator to free any adhesions from the underside of the transverse carpal ligament. Next I was able to insert the Microaire endoscopic carpal tunnel device with direct visualization of the transverse fibers on the monitor and proceeded with complete segmental retrograde release of the ligament in its entirety.? I irrigated with normal saline and closed with 4-0 monocryl for dermis and subcuticular closure. A dressing of Dermabond, 4x4, shea, and a volar splint was applied for patient safety, security, and comfort and secured with an mikal bandage after the tourniquet was let down noting the hand was warm and well perfused. The patient was then awaken from anesthesia and transferred to the recovery room in stable condition.? Complications - none EBL- 0cc Disposition - home in stable condition Eduardo Moore PA-C was essential for positioning, retraction, closure and dressing placement. [facility] Billing Surgery - Charge Forward: Surgery Billing ([id number] for eduardo)
--- NOTE | 2025-07-30 06:59 | WPDHPUPDATE1 ---
History and Physical Update Update Date/Time: 07/30/25 06:59 Patient seen and examined in pre-operative holding area. No interval change in medical history or symptoms. Patient recalls previous discussion of benefits and alternatives to procedure. Continues to desire to proceed with left endoscopic possible open carpal tunnel release. Reviewed procedure, post-op expectations and risks including but not limited to bleeding, infection, injury to tendon/nerve/vessel, decreased hand function, stiffness, RSD, no change or worsening of symptoms. I discussed the possible use of assistants and their participation in the case. Patient stated understanding and signed the consent form wishing to proceed.
[2025-07-30 09:33] VITALS: BMI 39.2
[2025-07-30 09:36] VITALS: BP 124/89; PULSE 78; RESP 18; TEMP 36.6; O2SAT 98
[2025-07-30] MEDS: ACETAMINOPHEN 500 MG TABLET 1000 MG PO (09:49)
[2025-07-30] MEDS: LACTATED RINGERS 1,000 ML 30 ML IV CONT (10:15)
--- NOTE | 2025-07-30 10:51 | P.PNAN_ITS ---
Anes - Initial Pre Proc Eval Procedure: Operation Date: 07/30/25 11:00 Proposed Procedures p Left Endoscopic Carpal Tunnel Release, Possible Open Carpal Tunnel Release - Yaima Conn MD Date/Time: 07/30/25 10:51 Surgeon: Yaima Conn MD Pre Op Diagnosis: Left Carpal Tunnel Syndrome Patient Data Age: 75 Gender: F Height: 1.63 m Weight: 103.8 kg Last Vital Signs Temp 97.9 F 07/30/25 09:36 Pulse 78 07/30/25 09:36 Resp 18 07/30/25 09:36 BP 124/89 07/30/25 09:36 Pulse Ox 98 07/30/25 09:36 O2 Del Method Room Air 07/30/25 09:36 Allergies Allergy/AdvReac Type Severity Reaction Status Date / Time atorvastatin AdvReac Intermediate Joint Pain Verified 07/30/25 09:24 Home Medications ?Medication ?Instructions ?Recorded ?Confirmed ?Type lisinopril 20 See Rx Instructions .Route 1 12/14/23 07/30/25 Rx mg-hydrochlorothiazide 25 mg tablet .COMPLEX #90 tabs rosuvastatin 20 mg tablet 20 mg PO QHS #90 tabs 07/30/25 Rx meclizine 25 mg tablet 25 mg PO TID PRN dizziness # 30 tabs 07/16/25 07/30/25 Rx levothyroxine 75 mcg tablet 75 mcg PO DAILY #90 tabs 0 07/20/25 07/30/25 Rx tramadol 50 mg tablet 50 mg PO Q6H PRN pain #12 ta bs 07/30/25 Rx Patient hx anesthesia problems: none Family hx anesthesia problems: none Results Review: All pre-operative results and documents have been reviewed as part of the pre- operative evaluation. 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 Dyslipidemia Chronic low back pain without sciatica Essential (primary) hypertension Unspecified osteoarthritis, unspecified site Hypothyroidism (acquired) CKD (chronic kidney disease) stage 3, GFR 30-59 ml/min Surgical History Surgical History S/P skin biopsy back History of appendectomy 02/1968 History of cholecystectomy 08/27/1997 History of total hysterectomy 09/1979 Hx of total knee arthroplasty right - 09/21/2016, left - 03/2018 Family History Family History Sibling Seizure Other Diabetes mellitus Family history of coronary artery disease Hypertension Social History Social History Social History: Caffeine-soda Smoking status: Never smoker Second hand tobacco smoke exposure: No Alcohol intake: current Drinks per week: 0 Alcohol use details: RARE Substance use: never Substance use type: does not use Lack of Transportation: No Lack of Food: Never True Current Housing: I Have Housing Concerned About Future Housing: No Difficulty Paying Gas/Electric Bills: No Difficulty Paying for Meds: No Currently Unemployed: No Education: High School Diploma/GED Difficulty w/ Childcare or Family Care: No Living arrangements: alone Additional living arrangements comments: Grandson Occupation/Education: retired Gender identity (if verbalized by the patient): Female Spiritual care concerns: No Agree to blood products: Yes Anes - Eval Final PreProcedure Day of Procedure 07/30/25 10:51 Heart: regular rate and rhythm Lungs: clear to auscultation and normal air movement Airway: Mallampati scale Neurological: alert and oriented ASA classification: III Emergent: no Anesthetic plan: proceed Anesthesia type and monitoring: standard monitoring Results Review: All pre-operative results and documents have been reviewed as part of the pre- operative evaluation. Informed Consent: The patient's anesthetic plan and its attendant risks and benefits were discussed with the patient/family/POA. Questions were solicited and answers provided to the satisfaction of the patient/family/POA.
[2025-07-30] MEDS: ceFAZolin 2 GM in SODIUM CHLORIDE 0.9% IV 50 ML 100 ML IVPB (11:07)
[2025-07-30] MEDS: LIDO 1%/EPINEPHRINE 1:100,000 20 ML VIAL 10 ML INFILTRATE (11:19)
[2025-07-30] MEDS: BUPivacaine HCL 0.5% 10 ML AMP INFILTRATE (11:20)
[2025-07-30 11:26] VITALS: BP 113/57; PULSE 71; RESP 14; O2SAT 98
--- NOTE | 2025-07-30 11:29 | WPDANESPN ---
Anes - Prog Note Post-Op Date/Time: 07/30/25 11:29 Cardiovascular status: normal Respiratory status: normal Airway patency: baseline Mental status: baseline Post-Op hydration status: normal Vital Signs: Last Vital Signs Temp 97.9 F 07/30/25 09:36 Pulse 78 07/30/25 09:36 Resp 18 07/30/25 09:36 BP 124/89 07/30/25 09:36 Pulse Ox 98 07/30/25 09:36 O2 Del Method Room Air 07/30/25 09:36 Pain Score (VAS): 0 Post-procedural complaints: none Patient Feedback: Patient satisfied with anesthetic care.
[2025-07-30 11:40] VITALS: BP 114/59; PULSE 77; RESP 16; O2SAT 98
[2025-07-30 12:00] VITALS: BP 125/60; PULSE 80; RESP 16; O2SAT 98
== END 2025-07-30 12:05 | disposition home or self-care (01) ==
LOC: ASC 09:16
PROVIDERS: PCP Family Medicine; Visit Provider Plastic Surgery
PROC: 01N54ZZ Release Median Nerve, Percutaneous Endoscopic Approach (ICD-10-PCS; CPT 29848; principal; 2025-07-30 11:00)
DX: G56.02 Carpal tunnel syndrome, left upper limb (principal)
CPT/HCPCS: 29848

== ENCOUNTER 2025-09-03 11:18 | Outpatient (CLI) | payer MEDICARE, OTHER, SELFPAY ==
--- OUTSIDE RECORDS SUMMARY | 2025-09-03 12:26 | XMS_ITS | Encounter Summary ---
Author Organization [facility] Facility Care Team Providers Care Pile Driver Operator Name Role Phone Cristobal Dotson Primary Care Provider [phone] Encounter Details Date Type Department Care Team (Latest Contact Info) Description 03/28/2018 Orders Only [facility] CLINCONV Provider, MD Yenny [address] [place] [address] Social History Tobacco Use Types Packs/Day Years Used Date Smoking Tobacco: Never Assessed Comments Unknown Sex and Gender Information Value Date Recorded Sex Assigned at Not on file Legal Sex Female 11:59 PM OCCUPATIONAL THERAPY AIDE Gender Identity Not on file Sexual Orientation [...] on filedocumented in this encounter Care Teams Pile Driver Operator Relationship Specialty Start Date End Date Cristobal Dotson [address] [place] [id number] PCP - General Emergency Medicine 01/23/19 documented as of this encounter
--- OUTSIDE RECORDS SUMMARY | 2025-09-03 12:27 | XMS_ITS | Encounter Summary ---
Author Organization [facility] Address [address] [place] [address] Care Team Providers Care Licensed Electrician Name Role Phone Unavailable Primary Care Provider Unavailabl e Encounter Details Date Type Department Care Team (Late st Contact Info) Description 05/01/2024 Lab Requisition [facility] - DermPath Lab [address] [facility], [place] [address] Rocio Mishra DO [address] [facility] [address] [place] [address] Social History Tobacco Use Types Packs/Day Years [...] AM CDT) Case Report Dermatopathology Report Case: [id number] Authorizing Provider: Rocio Mishra DO Collected: 05/01/2024 09:52 AM Ordering Location: [facility] - Received: 05/02/2024 04:31 PM [...] characteristic determined by the Dermatopathology Laboratory at [facility], directed by Dr. Lakisha Hennessy. These tests need not be, and therefore are not, approved by the [place] Food and Drug Administration. The tests are used for clinical purposes. Billing Codes Specimen Charges Stain Charges 24030 62179 1 1 4 4:48 PM CDT DERMATOPATHOLOGY LABORATORY Embedded Images 4:48 PM CDT DERMATOPATHOLOGY LABORATORY Pathology/Cytology TISSUE SPECIMEN FROM SKIN / Unknown 05/01/2024 9:52 AM CDT 05/02/2024 4:31 PM CDT Miscellaneous samples (specimen) TISSUE SPECIMEN FROM SKIN / Unknown 05/01/2024 9:52 AM CDT 05/02/2024 4:31 PM CDT us Rocio Mishra DO LAB - PATHOLOGY/CYTOLOGY ORDERABLES Final Result DERMATOPATHOLOGY LABORATORY [facility] - Department of Dermatology [facility] Specialized Medicine [address] [place] [address], [address] [phone] documented in this encounter Visit Diagnoses Not on filedocumented in this encounter
--- OUTSIDE RECORDS SUMMARY | 2025-09-03 12:27 | XMS_ITS | Clinical Summary ---
Author Organization [facility] Address [address] [place] [address] Care Team Providers Care Black Leather Buffer Name Role Phone Unavailable Primary Care Provider Unavailabl e Source Comments [facility],non-owned Affiliates and Associated Physician Practices is amultiple site organization consisting of ambulatory clinics and hospital sitesin [place], [place], [place] and [place]. This disclosure is being madepursuant to the Care Everywhere program and may not contain all information available regarding this patient. Last updated 18.[facility] [employer] Social History Tobacco Use Types Packs/Day Years [...] yrs (1 - 1-dose 75+ series) 02/16/2023 DEPRESSION SCREENING 10/22/2024 COVID-19 VACCINE ( - 2023-2 5 season) 2025 INFLUENZA VACCINE (#1) 2025 HEPATITIS B VACCINE [...] patient's age to complete [place] [address] MEDICARE [facility] * Guarantor: OMID CHAVEZ Account Type Relation to Patient Date of Phone Billing Address Personal/Family [address] [place] [address] MEDICARE [facility] * Guarantor: OMID CHAVEZ Account Type Relation to Patient Date of Phone Billing Address Personal/Family [address] [place] [address] MEDICARE [facility]
--- OUTSIDE RECORDS SUMMARY | 2025-09-03 12:27 | XMS_ITS | Encounter Summary ---
Author Organization [facility] Care Team Providers Care Matrix Inspector Name Role Phone Cristobal Dotson Primary Care Provider [phone] Encounter Details Date Type Department Care Team (Latest Contact Info) Description 09/20/2016 Orders Only [facility] CLINCONV Provider, MD Yenny [address] [place] [address] Social History Tobacco Use Types Packs/Day Years Used Date Smoking Tobacco: Never Assessed Comments Unknown Sex and Gender Information Value Date Recorded Sex Assigned at Not on file Legal Sex Female 11:59 PM SQUADRON WORKER Gender Identity Not on file Sexual Orientation Not on file documented as of this encounter Functional Status documented as of this encounter Plan of Treatment Not on file documented as of this encounter Procedures Procedure Name Priority Date/Time Associated Diagnosis Comments PROCEDURE - RESULT 09/20/2016 12 :00 AM SQUADRON WORKER documented in this encounter Results * PROCEDURE - RESULT (09/20/2016 12:00 AM SQUADRON WORKER) Narrative 09/20/2016 12:00 AM SQUADRON WORKER Ordered by an unspecified provider. Historical Provider Final Res ult documented in this encounter Visit Diagnoses Not on filedocumented in this encounter Care Teams Matrix Inspector Relationship Specialty Start Date End Date Cristobal Dotson [address] [place] [address] PCP - General Emergency Medicine 01/23/19 documented as of this encounter
--- OUTSIDE RECORDS SUMMARY | 2025-09-03 12:27 | XMS_ITS | Encounter Summary ---
Author Organization [facility] Address [address] [facility] [place] [address] Care Team Providers Care Launch Leader Name Role Phone Unavailable Primary Care Provider Unavailabl e Encounter Details Date Type Department Care Team (Late st Contact Info) Description 12/03/2024 Lab Requisition [facility] - DermPath Lab [address] [facility], [place] [address] Rocio Mishra DO [address] [facility] [address] [place] [address] Social History Tobacco Use Types Packs/Day Years [...] Diagnosis Comments DERMATOPATHOLOGY Routine 12/03/2024 9:03 AM RESEARCH ANTHROPOLOGIST documented in this encounter Results * DERMATOPATHOLOGY (12/03/2024 9:03 AM RESEARCH ANTHROPOLOGIST) Case Report Dermatopathology Report Case: [id number] Authorizing Provider: Rocio Mishra DO Collected: 12/03/2024 09:03 AM Ordering Location: [facility] Physician [facility] - Received: 12/03/2024 02:19 PM DermPath Lab Pathologist: Rita Bernard MD Specimen: Skin, right paraspinal back 12:51 PM RESEARCH ANTHROPOLOGIST DERMATOPATHOLOGY LABORATORY Final Diagnosis Specimen A. SKIN, right paraspinal back: DERMAL SCAR RESIDUAL SQUAMOUS CELL CARCINOMA NOT IDENTIFIED (L90.5) INCIDENTAL INTRADERMAL MELANOCYTIC NEVUS; NOT PRESENT AT MARGIN (D22.5) 12:51 PM RESEARCH ANTHROPOLOGIST DERMATOPATHOLOGY LABORATORY at 1251 RESEARCH ANTHROPOLOGIST Clinical History Bx Proven, R/O SCCIS 12:51 PM [facility] DERMATOPATHOLOGY LABORATORY Gross Description Specimen A: Received is one formalin filled container labeled with the patient's name and designated right paraspinal back. The specimen consists of a non-oriented ellipse of skin measuring 02i99c6 mm. The epidermal surface is unremarkable. The margin is inked green. The 12 o'clock and 6 o'clock tips are submitted in cassette 1. The remainder of the ellipse is serially sectioned and submitted in cassette 2-4. Jar 0. 12:51 PM [facility] DERMATOPATHOLOGY LABORATORY Microscopic Description Specimen A. [...] centered on the stratum granulosum. 12:51 PM [facility] DERMATOPATHOLOGY LABORATORY Disclaimer An external and internal positive and negative controls are appropriate for the histochemical, immunohistochemical and immunofluorescence stain(s) in this case (if any), except where stated explicitly. The performance characteristics of the stain(s) cited in this report were developed and its performance characteristic determined by the Dermatopathology Laboratory at [facility], directed by Dr. Lakisha Hennessy. These tests need not be, and therefore are not, approved by the [place] Food and Drug Administration. The tests are used for clinical purposes. Billing Codes Specimen Charges Stain Charges 57946 1 12:51 PM [facility] DERMATOPATHOLOGY LABORATORY Embedded Images 12:51 PM [facility] DERMATOPATHOLOGY LABORATORY Pathology/Cytolo gy TISSUE SPECIMEN FROM SKIN / Unknown 12/03/2024 9:03 AM RESEARCH ANTHROPOLOGIST 12/03/2024 2:19 PM RESEARCH ANTHROPOLOGIST Rocio Mishra DO LAB - PATHOLOGY/CYTOLOGY ORDERABLES Final Result DERMATOPATHOLOGY LABORATORY [facility] - Department of Dermatology [facility] Specialized Medicine [address] [place] [address], [address] [phone] documented in this encounter Visit Diagnoses Not on filedocumented in this encounter
--- OUTSIDE RECORDS SUMMARY | 2025-09-03 12:27 | XMS_ITS | Encounter Summary ---
Author Organization [facility] Address [address] [facility] [place] [address] Care Team Providers Care Bi Tri Operator Name Role Phone Unavailable Primary Care Provider Unavailabl e Encounter Details Date Type Department Care Team (Late st Contact Info) Description 11/13/[address] [facility] - DermPath Lab [address] [facility], [place] [address] Rocio Mishra DO [address] [facility] 3 [place] [address] Social History Tobacco Use Types Packs/Day Years [...] Comments DERMATOPATHOLOGY Routine 11/13/2024 11:0 0 AM PASTORAL WORKER documented in this encounter Results * DERMATOPATHOLOGY (11/13/2024 11:00 AM PASTORAL WORKER) Case Report Dermatopathology Report Case: [id number] Authorizing Provider: Rocio Mishra DO Collected: 11/13/2024 11:00 AM Ordering Location: [facility] - Received: 11/14/2024 06:51 AM DermPath Lab Pathologist: Niocl Tejeda MD Specimen: Skin, right paraspinal back 1:13 PM PASTORAL WORKER DERMATOPATHOLOGY LABORATORY Final Diagnosis Specimen A. 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 DERMATOPATHOLOGY LABORATORY Gross Description Specimen A: Received is one formalin filled container labeled with the patient's name and designated right paraspinal back. The specimen consists of a shave biopsy measuring 17x8x1 mm. Jar 0. 1:[address] [facility] DERMATOPATHOLOGY LABORATORY Microscopic Description Specimen A. SKIN, right paraspinal back: The epidermis shows parakeratosis, full thickness disorderly maturation of keratinocytes, mitoses at different levels, and dyskeratotic cells. 1:[address] [facility] DERMATOPATHOLOGY LABORATORY Disclaimer An external and internal positive and negative controls are appropriate for the histochemical, immunohistochemical and immunofluorescence stain(s) in this case (if any), except where stated explicitly. The performance characteristics of the stain(s) cited in this report were developed and its performance characteristic determined by the Dermatopathology Laboratory at [facility], directed by Dr. Lakisha Hennessy. These tests need not be, and therefore are not, approved by the [place] Food and Drug Administration. The tests are used for clinical purposes. Billing Codes Specimen Charges Stain Charges 31028 1 1:[address] [facility] DERMATOPATHOLOGY LABORATORY Embedded Images 1:[address] [facility] DERMATOPATHOLOGY LABORATORY Pathology/Cytolo gy TISSUE SPECIMEN FROM SKIN / Unknown 11/13/2024 11:00 AM PASTORAL WORKER 11/14/2024 6:51 AM PASTORAL WORKER Rocio Mishra DO LAB - PATHOLOGY/CYTOLOGY ORDERABLES Final Result DERMATOPATHOLOGY LABORATORY [facility] - Department of Dermatology [address], [address] [phone] documented in this encounter Visit Diagnoses Not on filedocumented in this encounter
--- OUTSIDE RECORDS SUMMARY | 2025-09-03 12:27 | XMS_ITS | Encounter Summary ---
Author Organization [facility] Facility Care Team Providers Care Electrical Line Worker Name Role Phone Cristobal Dotson Primary Care Provider [phone] Encounter Details Date Type Department Care Team (Latest Contact Info) Description 09/11/2016 Orders Only [facility] CLINCONV Provider, MD Yenny [address] [place] [address] Social History Tobacco Use Types Packs/Day Years Used Date Smoking Tobacco: Never Assessed Comments Unknown Sex and Gender Information Value Date Recorded Sex Assigned at Not on file Legal Sex Female 11:59 PM AUTO DRIVER Gender Identity Not on file Sexual Orientation Not on file documented as of this encounter Plan of Treatment Not on file documented as of this encounter Procedures Procedure Name Priority Date/Time Associated Diagnosis Comments PROCEDURE - RESULT 09/19/2016 12 :00 AM AUTO DRIVER documented in this encounter Results * PROCEDURE - RESULT (09/19/2016 12:00 AM AUTO DRIVER) Narrative 09/19/2016 12:00 AM AUTO DRIVER Ordered by an unspecified provider. us Historical Provider Final Res ult documented in this encounter Visit Diagnoses Not on filedocumented in this encounter Care Teams Electrical Line Worker Relationship Specialty Start Date End Date Cristobal Dotson [address] [place] [address] PCP - General Emergency Medicine 01/23/19 documented as of this encounter
--- OUTSIDE RECORDS SUMMARY | 2025-09-03 12:27 | XMS_ITS | Clinical Summary ---
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
--- OUTSIDE RECORDS SUMMARY | 2025-09-03 12:27 | XMS_ITS | Encounter Summary ---
Author Organization [facility] Facility Care Team Providers Care Cooking Show Host Name Role Phone Cristobal Dotson Primary Care Provider [phone] Encounter Details Date Type Department Care Team (Latest Contact Info) Description 04/01/2018 Orders Only [facility] CLINCONV Provider, MD Yenyn [address] [place] [address] Social History Tobacco Use Types Packs/Day Years Used Date Smoking Tobacco: Never Assessed Comments Unknown Sex and Gender Information Value Date Recorded Sex Assigned at Not on file Legal Sex Female 11:59 PM DELIVERY COORDINATOR Gender Identity Not on file Sexual Orientation [...] on filedocumented in this encounter Care Teams Cooking Show Host Relationship Specialty Start Date End Date Cristobal Dotson [address] [place] [address] PCP - General Emergency Medicine 01/23/19 documented as of this encounter
--- OUTSIDE RECORDS SUMMARY | 2025-09-03 12:27 | XMS_ITS | Encounter Summary ---
Author Organization [facility] Facility Care Team Providers Care Nurse Infection Control Name Role Phone Cristobal Dotson Primary Care Provider [phone] Encounter Details Date Type Department Care Team (Latest Contact Info) Description 02/11/2018 Orders Only [facility]INCONV Provider, MD Yenny [address] [place] [id number] Social History Tobacco Use Types Packs/Day Years Used Date Smoking Tobacco: Never Assessed Comments Unknown Sex and Gender Information Value Date Recorded Sex Assigned at Not on file Legal Sex Female 11:59 PM [employer]ERNMENT [employer]ATIONS [employer]NAGER Gender Identity Not on file Sexual [...] on filedocumented in this encounter Care Teams Nurse Infection Control Relationship Specialty Start Date End Date Cristobal Dotson [address] [place] [address] PCP - General Emergency Medicine 01/23/19 documented as of this encounter
[2025-09-03 13:03] LABS: Hematocrit 38.7 % (37.0-47.0); Hemoglobin 12.7 g/dL (12.0-15.0); Immature Granulocyte Percent A 0.3 % (0-0.5); Lymphocytes Absolute Auto 2.23 K/mm3 (0.9-3.2); Mean Corpuscular HGB Conc 32.8 g/dl (32-36); Mean Corpuscular Hemoglobin 32.6 pg (26-34); Mean Corpuscular Volume 99.5 fl (80-100); Nucleated Red Blood Cells Absolute Auto 0.000 K/mm3 (0.0-0.012); Nucleated Red Blood Cells Perc 0.0 % (0.0-0.2); Platelet Count Result 218 k/mm3 (150-375); Red Blood Count 3.89 M/mm3 (4.2-5.4); White Blood Count 7.6 K/mm3 (4.5-10.0)
[2025-09-03 13:17] LABS: Alanine Aminotransferase 27 U/L (6-35); Albumin Level 4.8 g/dL (3.5-5.1); Alkaline Phosphatase 59 U/L (38-126); Anion Gap 9 mmol/L (4-12); Aspartate Amino Transferase 47 U/L (14-36); Bilirubin,Total 0.7 mg/dL (0.2-1.3); Blood Urea Nitrogen 29 mg/dL (7-17); Calcium 10.0 mg/dL (8.4-10.2); Carbon Dioxide 28 mmol/L (22-30); Chloride 105 mmol/L (98-107); Cholesterol 169 mg/dL (0-200); Estimated Glomerular Filt Rate 45; Glucose 108 mg/dL (65-110); HDL Direct 61 mg/dL; Potassium 4.1 mmol/L (3.4-5.0); Sodium 142 mmol/L (137-145); Total Protein 7.9 g/dL (6.3-8.2); Triglycerides 171 mg/dL (<150)
[2025-09-03 13:37] LABS: Thyroid Stimulating Hormone Reflex 0.977 uIU/mL (0.465-4.68)
[2025-09-03 15:25] LABS: Vitamin B12 270.0 pg/mL (239-931)
[2025-09-03 15:53] LABS: Hemoglobin A1C 6.2 % (<5.7)
== END 2025-09-03 11:19 | disposition home or self-care (01) ==
PROVIDERS: PCP Family Medicine; Visit Provider Family Medicine
DX: E78.5 Hyperlipidemia, unspecified (principal); I10 Essential (primary) hypertension; Z00.00 Encounter for general adult medical examination without abnormal findings; E03.9 Hypothyroidism, unspecified; E53.8 Deficiency of other specified B group vitamins; E55.9 Vitamin D deficiency, unspecified; R73.03 Prediabetes
CPT/HCPCS: 36415; 80053; 80061; 82306; 82607; 83036; 84443; 85025